=== PATIENT | female | born 1965 | race Caucasian/White ===

== ENCOUNTER → 2017-01-16 | Outpatient (CLI) | payer BC ==
[~2017-01-16] MED LIST: ACCUNEB 0.1.25 MG/1 INH; ALLEGRA ALLERG180 M1 PO; AMOXIL500 MG PO; ANAPROX DS550 MG PO; ANTI-FUNGAL1% TP; ASMANEX220 MCG INH; ASPIRIN FOR CHI81 MG PO; ASTEPRO137 MCG/Ac NS; ATIVAN1 MG PO; AUGMENTIN XR 101 TER PO; AZMACORT; BACTRIM 400 MG-1 TAB PO; BENTYL10 MG PO; BIAXIN500 MG PO; CALCIUM 500 +1 EAC3 PO; CARDIZEM LA240 MG PO; CARDIZEM30 MG; CIPROFLOXACIN500 MG PO; CLARITIN10 MG PO; COLACE50 MG PO; COMBIVENT1 ARO IH; DAYPRO600 M1 PO; DELTASONE10 MG PO; DIFLUCAN200 MG PO; DILTIAZEM XT PO; DOXYCYCLINE100 M3 PO; ENALAPRIL10 MG PO; ETODOLAC500 MG PO; FLUCONAZOLE100 MG PO; HYDROCODONE BIT1 T11 PO; LASIX20 MG PO; MACROBID100 M1 PO; MEDROL DOSEPAK4 MG PO; MIRALAX POWDER17 G1 PO; MIRALAX17 GM/DOSE PO; MOBIC7.5 MG; MOBIC7.5 MG PO; Motrin,Rufen800 MG PO; NIZORAL 2%15 GM PO; OXYBUTYNIN10 MG PO; OYSTER CAL 500500 MG PO; PAROXETINE HCL20 MG PO; PAXIL20 M1 PO; PAXIL20 MG PO; PREDNISONE10 MG PO; PROAIR HFA0.09 MG/AC IH; PYRIDIUM200 MG PO; ROBAXIN750 MG PO; SINGULAIR10 MG; Synthroid,Lev125 MCG PO; TESSALON PERLE200 MG PO; TOPROL XL25 MG PO; ULTRAM50 MG PO; VASOTEC10 MG PO; VICODIN 500 MG-1 TAB PO; VICODIN ES 7501 TAB PO; VITAMIN D32000 I1 PO; VITAMIN D50000 I2 PO; ZANTAC150 MG PO; ZOFRAN ODT4 MG SL; ZOFRAN4 MG PO; ZYRTEC10 MG PO; Zofran4 MG PO; [UNRECOGNIZED DRUG - OTHER] PO
[2017-01-16 14:42] LABS: FREE T4 0.89 ng/dl (0.76-1.46)
[2017-01-16 14:48] LABS: THYROID STIM HORMONE (HS) 41.6 uIU/ml (0.358-4.75)
== END | disposition home or self-care (01) ==
LOC: LAB 13:23
PROVIDERS: Internal Medicine Endocrinology, Diabetes & Metabolism
DX: E89.0 Postprocedural hypothyroidism (principal)

== ENCOUNTER → 2017-02-04 | Outpatient (CLI) | payer BC | END | disposition home or self-care (01) | LOC: LAB 16:14 | DX: E89.0 Postprocedural hypothyroidism (principal) ==

== ENCOUNTER 2017-02-11 21:04 | Emergency (ER) | payer BC ==
[~2017-02-11] VITALS: Ht 182.8 cm; Wt 167.8 kg
[2017-02-11] MEDS ORDERED: PROVENTIL0.09 MG/A1 INH (21:32)
[2017-02-11] MEDS ORDERED: PREDNISONE20 M1 PO (23:37)
[2017-02-11] MEDS ORDERED: CEFDINIR250 MG/5 M PO (23:37)
== END 2017-02-12 00:03 | disposition home or self-care (01) ==
LOC: ED 21:04
DX: R13.12 Dysphagia, oropharyngeal phase (principal); J02.9 Acute pharyngitis, unspecified; E03.9 Hypothyroidism, unspecified; F41.9 Anxiety disorder, unspecified; Z88.1 Allergy status to other antibiotic agents; Z88.2 Allergy status to sulfonamides; Z79.899 Other long term (current) drug therapy

== ENCOUNTER → 2017-03-24 | Outpatient (CLI) | payer BC ==
[~2017-03-24] MED LIST changes: +CEFDINIR250 MG/5 M PO; +PREDNISONE20 M1 PO; +PROVENTIL0.09 MG/A1 INH
[2017-03-24 08:41] LABS: BASO % 0.5 % (0.0-1.0); EOS # 0.2 10*3/uL (0.0-0.4); EOS % 1.7 % (1.0-4.0); HEMATOCRIT 40.9 % (37.0-47.0); HEMOGLOBIN 13.6 g/dl (12.0-16.0); LYMPH # 2.8 10*3/uL (1.3-4.4); LYMPH % 32.4 % (27.0-41.0); MEAN CELL VOLUME 88.3 fl (81.0-99.0); MEAN CORPUSCULAR HGB 29.4 pg (27.0-31.0); MEAN CORPUSCULAR HGB CONC 33.3 g/dl (33.0-37.0); MONO # 0.7 10*3/uL (0.1-1.0); MONO % 7.9 % (3.0-9.0); NEUT # 4.9 10*3/uL (2.3-7.9); PLATELET COUNT AUTOMATED 200 10*3/uL (130-400); RED BLOOD COUNT 4.63 10*6/uL (4.10-5.10); RED CELL DISTRI WIDTH 13.2 % (0-14.5); WHITE BLOOD COUNT 8.6 10*3/uL (4.8-10.8)
[2017-03-24 09:12] LABS: EST GLOM FILT AFRICAN AMERICAN > 60 ml/min; SGOT/AST 18 IU/L (3-35); SGPT/ALT 26 U/L (12-78)
== END | disposition home or self-care (01) ==
LOC: LAB 08:17
PROVIDERS: Internal Medicine Endocrinology, Diabetes & Metabolism
DX: E55.9 Vitamin D deficiency, unspecified (principal); E89.0 Postprocedural hypothyroidism; Z79.899 Other long term (current) drug therapy

== ENCOUNTER → 2017-05-22 | Outpatient (CLI) | payer BC ==
[2017-05-22 16:20] LABS: BASO % 0.5 % (0.0-1.0); EOS # 0.2 10*3/uL (0.0-0.4); EOS % 2.4 % (1.0-4.0); HEMATOCRIT 41.9 % (37.0-47.0); HEMOGLOBIN 13.7 g/dl (12.0-16.0); LYMPH # 2.9 10*3/uL (1.3-4.4); LYMPH % 32.7 % (27.0-41.0); MEAN CORPUSCULAR HGB 29.1 pg (27.0-31.0); MEAN CORPUSCULAR HGB CONC 32.7 g/dl (33.0-37.0); MEAN PLATELET VOLUME 10.6 fl (9.6-12.3); MONO # 0.6 10*3/uL (0.1-1.0); MONO % 7.1 % (3.0-9.0); PLATELET COUNT AUTOMATED 215 10*3/uL (130-400); RED BLOOD COUNT 4.71 10*6/uL (4.10-5.10); RED CELL DISTRI WIDTH 12.7 % (0-14.5); WHITE BLOOD COUNT 8.8 10*3/uL (4.8-10.8)
[2017-05-22 16:51] LABS: BUN 16 mg/dl (7-24); CARBON DIOXIDE 27 mmol/L (21-32); CHLORIDE 106 mmol/L (98-107); EST GLOM FILT AFRICAN AMERICAN > 60 ml/min; GLUCOSE 80 mg/dL (65-99); POTASSIUM 4.1 mmol/L (3.5-5.1); SODIUM 141 mmol/L (136-145)
== END | disposition home or self-care (01) ==
LOC: LAB 14:53
PROVIDERS: Internal Medicine Endocrinology, Diabetes & Metabolism
DX: E89.0 Postprocedural hypothyroidism (principal)

== ENCOUNTER 2017-06-13 17:11 | Emergency (ER) | payer BC ==
[~2017-06-13] VITALS: Ht 182.8 cm; Wt 168.3 kg
[2017-06-13] MEDS ORDERED: NAPROSYN500 MG PO (17:32)
== END 2017-06-13 18:17 | disposition home or self-care (01) ==
LOC: ED 17:11
DX: M79.644 Pain in right finger(s) (principal); R03.0 Elevated blood-pressure reading, without diagnosis of hypertension; Z88.1 Allergy status to other antibiotic agents; Z88.2 Allergy status to sulfonamides; Z91.018 Allergy to other foods; Z79.899 Other long term (current) drug therapy

== ENCOUNTER → 2017-09-08 | Outpatient (CLI) | payer BC ==
[~2017-09-08] MED LIST changes: +NAPROSYN500 MG PO
[2017-09-08 16:51] LABS: BUN 17 mg/dl (7-24); CREATININE 0.94 mg/dL (0.55-1.02); SGOT/AST 14 IU/L (3-35); SGPT/ALT 22 U/L (12-78)
== END | disposition home or self-care (01) ==
LOC: LAB 16:20
PROVIDERS: Specialist
DX: M79.7 Fibromyalgia (principal); E89.0 Postprocedural hypothyroidism; Z79.899 Other long term (current) drug therapy

== ENCOUNTER → 2017-11-07 | Outpatient (CLI) | payer BC ==
[~2017-11-07] MED LIST changes: +FLONASE ALLERG9.9 ML NAS; +Zofran4 MG SL
== END | disposition home or self-care (01) ==
LOC: RAD 09:18
DX: K59.00 Constipation, unspecified (principal); R09.81 Nasal congestion; R10.11 Right upper quadrant pain; R63.4 Abnormal weight loss; Z90.49 Acquired absence of other specified parts of digestive tract

== ENCOUNTER 2017-11-10 04:03 | Emergency (ER) | payer BC ==
[~2017-11-10] VITALS: Ht 182.8 cm; Wt 136.1 kg
[~2017-11-10 04:03] MED LIST changes: -FLONASE ALLERG9.9 ML NAS; -Zofran4 MG SL
[2017-11-10 04:37] LABS: BASO % 0.5 % (0.0-1.0); EOS # 0.2 10*3/uL (0.0-0.4); EOS % 2.6 % (1.0-4.0); HEMATOCRIT 40.7 % (37.0-47.0); HEMOGLOBIN 13.6 g/dl (12.0-16.0); LYMPH # 0.8 10*3/uL (1.3-4.4); LYMPH % 13.1 % (27.0-41.0); MEAN CELL VOLUME 88.3 fl (81.0-99.0); MEAN CORPUSCULAR HGB 29.5 pg (27.0-31.0); MEAN CORPUSCULAR HGB CONC 33.4 g/dl (33.0-37.0); MEAN PLATELET VOLUME 9.6 fl (9.6-12.3); MONO # 0.8 10*3/uL (0.1-1.0); MONO % 13.3 % (3.0-9.0); PLATELET COUNT AUTOMATED 168 10*3/uL (130-400); RED BLOOD COUNT 4.61 10*6/uL (4.10-5.10); RED CELL DISTRI WIDTH 13.2 % (0-14.5); WHITE BLOOD COUNT 5.7 10*3/uL (4.8-10.8)
[2017-11-10 04:52] LABS: ALBUMIN 3.7 gm/dl (3.1-4.5); ALKALINE PHOSPHATASE 118 U/L (45-117); BUN 17 mg/dl (7-24); CHLORIDE 105 mmol/L (98-107); CREATININE 1.12 mg/dL (0.55-1.02); LIPASE 119 U/L (73-393); POTASSIUM 3.9 mmol/L (3.5-5.1); SGOT/AST 15 IU/L (3-35); SGPT/ALT 26 U/L (12-78); SODIUM 142 mmol/L (136-145); TOTAL PROTEIN 7.8 gm/dL (6.4-8.2)
[2017-11-10 04:57] LABS: BILIRUBIN NEGATIVE (NEGATIVE); BLOOD NEGATIVE (NEGATIVE); CLARITY SL CLOUDY (CLEAR); COLOR YELLOW (YELLOW); GLUCOSE NEGATIVE (NEGATIVE); KETONE TRACE (NEGATIVE); LEUKO ESTERASE NEGATIVE (NEGATIVE); NITRITE NEGATIVE (NEGATIVE); PH 5.5 (5.0-9.0); SPECIFIC GRAVITY 1.025 (1.005-1.030); UROBILINOGEN 0.2 E.U./dl (0.2-1.0)
[2017-11-10 05:03] LABS: EPITHELIAL CELLS 45-50
[2017-11-10 05:04] LABS: BACTERIA 1+
[2017-11-10] MEDS ORDERED: FLONASE ALLERG9.9 ML NAS (06:10)
[2017-11-10] MEDS ORDERED: Zofran4 MG SL (06:10)
== END 2017-11-10 06:58 | disposition home or self-care (01) ==
LOC: ED 04:03
PROVIDERS: Student in an Organized Health Care Education/Training Program
DX: B34.9 Viral infection, unspecified (principal); R10.11 Right upper quadrant pain; M54.5 Low back pain; E03.9 Hypothyroidism, unspecified; Z90.710 Acquired absence of both cervix and uterus; Z90.49 Acquired absence of other specified parts of digestive tract; Z90.89 Acquired absence of other organs; Z79.899 Other long term (current) drug therapy; Z88.2 Allergy status to sulfonamides; Z88.1 Allergy status to other antibiotic agents; Z91.018 Allergy to other foods

== ENCOUNTER 2018-02-20 23:01 | Emergency (ER) | payer BC ==
[~2018-02-20] VITALS: Ht 182.8 cm; Wt 157.9 kg
[~2018-02-20 23:01] MED LIST changes: +FLONASE ALLERG9.9 ML NAS; +Zofran4 MG SL
[2018-02-20] MEDS ORDERED: FLOVENT HFA12 GM INH (23:13)
[2018-02-20] MEDS ORDERED: ZYRTEC10 MG PO (23:14)
[2018-02-20] MEDS ORDERED: CEPHALEXIN500 M1 PO (23:30)
== END 2018-02-20 23:42 | disposition home or self-care (01) ==
LOC: ED 23:01
DX: S30.861A Insect bite (nonvenomous) of abdominal wall, initial encounter (principal); F41.9 Anxiety disorder, unspecified; Z88.2 Allergy status to sulfonamides; Z88.1 Allergy status to other antibiotic agents; Z79.899 Other long term (current) drug therapy; W57.XXXA Bitten or stung by nonvenomous insect and other nonvenomous arthropods, initial encounter; Y93.89 Activity, other specified; Y92.89 Other specified places as the place of occurrence of the external cause; Y99.8 Other external cause status

== ENCOUNTER → 2018-07-23 | Outpatient (CLI) | payer BC ==
[~2018-07-23] MED LIST changes: +CEPHALEXIN500 M1 PO; +FLOVENT HFA12 GM INH
== END | disposition home or self-care (01) ==
LOC: RESCLI 01:03
DX: Z12.4 Encounter for screening for malignant neoplasm of cervix (principal); Z12.31 Encounter for screening mammogram for malignant neoplasm of breast; Z12.11 Encounter for screening for malignant neoplasm of colon; R06.02 Shortness of breath; F41.9 Anxiety disorder, unspecified; E89.0 Postprocedural hypothyroidism; E66.01 Morbid (severe) obesity due to excess calories; D51.0 Vitamin B12 deficiency anemia due to intrinsic factor deficiency; E55.9 Vitamin D deficiency, unspecified; I10 Essential (primary) hypertension; Z76.89 Persons encountering health services in other specified circumstances; Z86.79 Personal history of other diseases of the circulatory system; Z91.09 Other allergy status, other than to drugs and biological substances; Z79.899 Other long term (current) drug therapy

== ENCOUNTER → 2018-08-12 | Outpatient (CLI) | payer BC | END | disposition home or self-care (01) | LOC: MAMMO 09:48 | DX: Z12.31 Encounter for screening mammogram for malignant neoplasm of breast (principal) ==

== ENCOUNTER → 2018-09-10 | Outpatient (CLI) | payer BC | END | disposition home or self-care (01) | LOC: RESCLI 03:28 | DX: Z00.00 Encounter for general adult medical examination without abnormal findings (principal); F13.20 Sedative, hypnotic or anxiolytic dependence, uncomplicated; I10 Essential (primary) hypertension; R06.02 Shortness of breath; E55.9 Vitamin D deficiency, unspecified; E03.9 Hypothyroidism, unspecified; F32.9 Major depressive disorder, single episode, unspecified; I49.9 Cardiac arrhythmia, unspecified; M19.90 Unspecified osteoarthritis, unspecified site; N39.498 Other specified urinary incontinence; J30.2 Other seasonal allergic rhinitis; Z79.899 Other long term (current) drug therapy; Z88.2 Allergy status to sulfonamides; Z88.8 Allergy status to other drugs, medicaments and biological substances ==

== ENCOUNTER → 2018-10-26 | Outpatient (CLI) | payer BC ==
[~2018-10-26] MED LIST changes: +AMINOPHYLLIN200 MG PO; +BUSPAR15 MG PO; +MUCINEX ER600 MG PO; +NYSTATIN CREAM15 GM T; +VENTOLIN 02.5 MG/3 M INH; +ZITHROMAX250 MG PO
== END | disposition home or self-care (01) ==
LOC: RESCLI 09:00
DX: I10 Essential (primary) hypertension (principal); J00 Acute nasopharyngitis [common cold]; H66.001 Acute suppurative otitis media without spontaneous rupture of ear drum, right ear; B37.3 Candidiasis of vulva and vagina; E78.5 Hyperlipidemia, unspecified; J45.909 Unspecified asthma, uncomplicated; Z90.49 Acquired absence of other specified parts of digestive tract; Z88.2 Allergy status to sulfonamides; Z91.018 Allergy to other foods; Z79.899 Other long term (current) drug therapy; Z88.8 Allergy status to other drugs, medicaments and biological substances

== ENCOUNTER → 2018-10-29 | Day surgery (SDC) | payer BC ==
[~2018-10-29] VITALS: Ht 182.8 cm; Wt 174.6 kg
--- NOTE | ~2018-10-29 | PROC NOTE ---
[place], [place] PROCEDURE NOTE NAME: KIRILL BECERRA [facility] #: [id number] UNIT #: [id number] ROOM: DOCTOR: JULISA HUTSON MD BIRTHDATE: [birth year] DOS: PROCEDURES: 1. Esophagogastroduodenoscopy and biopsy. 2. Colonoscopy and biopsy. INDICATIONS: Nausea, abdominal pain, and chronic diarrhea. An informed consent was obtained from the patient after indication of procedures, the alternatives and potential complications were explained to her. Procedure medication, sedation was administered by Anesthesiology Department. Scope used was Olympus pediatric colonoscope variable stiffness GIF-180, depth of insertion with upper endoscopy was to descending duodenum. With the colonoscopy was to the cecum, which was identified by the usual landmarks, the appendiceal orifice, ileocecal valve and triangular fold, in addition to transillumination in the right lower quadrant. FINDINGS: After adequate sedation, the patient was placed in left lateral decubitus position. Upper endoscopy was performed first. Scope was introduced under direct visualization through the upper esophageal sphincter into the esophagus. Esophageal mucosa appeared normal with no ulcerations or strictures. Lower esophageal sphincter was identified at 40 cm from incisors. Normal appearing Z line. The stomach was then intubated. Gastric mucosa inspected. Moderate gastritis was seen with no discrete ulcers or active bleeding. A YOVANY test was performed from gastric antrum and body. Retroflexed views in the fundus were unremarkable. The pylorus was intubated easily. The duodenal bulb and descending duodenum were within normal range. Scope was then withdrawn after the stomach was decompressed. We then proceeded with the colonoscopy. Rectal examination showed a diminished sphincter tone and no external hemorrhoids. The scope was introduced into the rectum then advanced to the cecum with no difficulty. The prep was good. The colon mucosa appeared normal with no evidence of polyps, diverticular ulcerations. Random biopsies were obtained to rule out microscopic colitis. Retroflex views in the rectum showed grade 1 internal hemorrhoids. Scope was then withdrawn after the rectum was decompressed. The patient tolerated the procedures well. IMPRESSION: 1. Moderate gastritis, CLOtest performed. 2. Normal upper GI tract otherwise. 3. Normal colon mucosa, random biopsies obtained. 4. Small internal hemorrhoids. PLAN: We will review the histopathology and YOVANY test results and treat the patient accordingly. Office followup will be scheduled in 1-2 weeks. [place], [place] PROCEDURE NOTE NAME: KIRILL BECERRA UNIT #: [id number] ROOM: DOCTOR: JULISA HUTSON MD BIRTHDATE: [birth year] JULISA HUTSON MD CM:PROCNOTE:PROCEDURE NOTE [id number] JULISA HUTSON MD
[2018-10-29 07:20] VITALS: BP 129/85
[2018-10-29 09:13] VITALS: BP 121/62
[2018-10-29 09:28] VITALS: BP 130/64
[2018-10-29 09:43] VITALS: BP 119/74
== END | disposition home or self-care (01) ==
LOC: SDC 10-25 09:30
DX: K64.0 First degree hemorrhoids (principal); K29.70 Gastritis, unspecified, without bleeding; I10 Essential (primary) hypertension; J45.909 Unspecified asthma, uncomplicated; F41.9 Anxiety disorder, unspecified; F32.9 Major depressive disorder, single episode, unspecified; E66.9 Obesity, unspecified; Z68.43 Body mass index [BMI] 50.0-59.9, adult; Z90.710 Acquired absence of both cervix and uterus; Z98.890 Other specified postprocedural states; Z88.8 Allergy status to other drugs, medicaments and biological substances; Z88.2 Allergy status to sulfonamides; Z91.018 Allergy to other foods; Z88.1 Allergy status to other antibiotic agents; Z86.718 Personal history of other venous thrombosis and embolism; Z82.49 Family history of ischemic heart disease and other diseases of the circulatory system; Z80.1 Family history of malignant neoplasm of trachea, bronchus and lung

== ENCOUNTER 2018-10-30 13:26 | Emergency (ER) | payer BC ==
[~2018-10-30] VITALS: Ht 182.8 cm; Wt 166.9 kg
[~2018-10-30 13:26] MED LIST changes: -AMINOPHYLLIN200 MG PO; -BUSPAR15 MG PO; -MUCINEX ER600 MG PO; -NYSTATIN CREAM15 GM T; -VENTOLIN 02.5 MG/3 M INH; -ZITHROMAX250 MG PO
[2018-10-30 14:00] LABS: BASO % 0.5 % (0.0-1.0); EOS # 0.2 10*3/uL (0.0-0.4); EOS % 2.7 % (1.0-4.0); HEMATOCRIT 44.4 % (37.0-47.0); HEMOGLOBIN 14.6 g/dl (12.0-16.0); LYMPH % 25.5 % (27.0-41.0); MEAN CELL VOLUME 89.7 fl (81.0-99.0); MEAN CORPUSCULAR HGB 29.5 pg (27.0-31.0); MEAN CORPUSCULAR HGB CONC 32.9 g/dl (33.0-37.0); MEAN PLATELET VOLUME 9.5 fl (9.6-12.3); MONO # 0.6 10*3/uL (0.1-1.0); MONO % 7.1 % (3.0-9.0); NEUT # 5.1 10*3/uL (2.3-7.9); NEUT % 63.9 % (47.0-73.0); PLATELET COUNT AUTOMATED 207 10*3/uL (130-400); RED BLOOD COUNT 4.95 10*6/uL (4.10-5.10); RED CELL DISTRI WIDTH 12.8 % (0-14.5); WHITE BLOOD COUNT 7.9 10*3/uL (4.8-10.8)
[2018-10-30 14:17] LABS: ALBUMIN 3.3 gm/dl (3.1-4.5); ALKALINE PHOSPHATASE 104 U/L (45-117); BUN 14 mg/dl (7-24); CHLORIDE 103 mmol/L (98-107); CREATININE 1.09 mg/dL (0.55-1.02); POTASSIUM 3.9 mmol/L (3.5-5.1); SGOT/AST 10 IU/L (3-35); SGPT/ALT 20 U/L (12-78); SODIUM 139 mmol/L (136-145); TOTAL PROTEIN 7.3 gm/dL (6.4-8.2)
[2018-10-30] MEDS ORDERED: MEDROL DOSEPAK4 MG PO (16:22)
== END 2018-10-30 16:45 | disposition home or self-care (01) ==
LOC: ED 13:26
PROVIDERS: Emergency Medicine
DX: B27.90 Infectious mononucleosis, unspecified without complication (principal); E03.9 Hypothyroidism, unspecified; Z90.710 Acquired absence of both cervix and uterus; Z91.018 Allergy to other foods; Z88.2 Allergy status to sulfonamides; Z91.041 Radiographic dye allergy status; Z88.1 Allergy status to other antibiotic agents; Z79.899 Other long term (current) drug therapy

== ENCOUNTER → 2018-11-09 | Outpatient (CLI) | payer BC ==
[~2018-11-09] MED LIST changes: +AMINOPHYLLIN200 MG PO; +BUSPAR15 MG PO; +MUCINEX ER600 MG PO; +NYSTATIN CREAM15 GM T; +VENTOLIN 02.5 MG/3 M INH; +ZITHROMAX250 MG PO
== END | disposition home or self-care (01) ==
LOC: RESCLI 01:54
DX: I10 Essential (primary) hypertension (principal); J00 Acute nasopharyngitis [common cold]; E55.9 Vitamin D deficiency, unspecified; B37.3 Candidiasis of vulva and vagina; E03.9 Hypothyroidism, unspecified; F32.9 Major depressive disorder, single episode, unspecified; I49.9 Cardiac arrhythmia, unspecified; B27.90 Infectious mononucleosis, unspecified without complication; R05 Cough; E66.01 Morbid (severe) obesity due to excess calories; R00.0 Tachycardia, unspecified; J45.909 Unspecified asthma, uncomplicated; Z90.49 Acquired absence of other specified parts of digestive tract; Z79.899 Other long term (current) drug therapy; Z88.8 Allergy status to other drugs, medicaments and biological substances; Z91.018 Allergy to other foods; Z91.012 Allergy to eggs; Z88.2 Allergy status to sulfonamides

== ENCOUNTER 2018-11-11 18:59 | Inpatient (IN) | payer BC ==
--- NOTE | ~2018-11-11 | EKG ---
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
[~2018-11-11 18:59] MED LIST changes: -AMINOPHYLLIN200 MG PO; -BUSPAR15 MG PO; -MUCINEX ER600 MG PO; -NYSTATIN CREAM15 GM T; -VENTOLIN 02.5 MG/3 M INH; -ZITHROMAX250 MG PO
[2018-11-11 19:01] VITALS: BP 152/93
[2018-11-11 19:35] LABS: BASO % 0.5 % (0.0-1.0); EOS # 0.3 10*3/uL (0.0-0.4); HEMATOCRIT 45.1 % (37.0-47.0); HEMOGLOBIN 14.8 g/dl (12.0-16.0); LYMPH # 2.1 10*3/uL (1.3-4.4); LYMPH % 26.5 % (27.0-41.0); MEAN CELL VOLUME 89.8 fl (81.0-99.0); MEAN CORPUSCULAR HGB 29.5 pg (27.0-31.0); MEAN CORPUSCULAR HGB CONC 32.8 g/dl (33.0-37.0); MEAN PLATELET VOLUME 9.5 fl (9.6-12.3); MONO # 0.8 10*3/uL (0.1-1.0); MONO % 10.4 % (3.0-9.0); NEUT # 4.7 10*3/uL (2.3-7.9); PLATELET COUNT AUTOMATED 186 10*3/uL (130-400); RED BLOOD COUNT 5.02 10*6/uL (4.10-5.10); RED CELL DISTRI WIDTH 13.2 % (0-14.5)
[2018-11-11 19:49] LABS: ALBUMIN 3.3 gm/dl (3.1-4.5); ALKALINE PHOSPHATASE 103 U/L (45-117); BUN 10 mg/dl (7-24); CHLORIDE 103 mmol/L (98-107); CREATININE 1.08 mg/dL (0.55-1.02); POTASSIUM 4.2 mmol/L (3.5-5.1); SGOT/AST 21 IU/L (3-35); SGPT/ALT 22 U/L (12-78); SODIUM 139 mmol/L (136-145); TOTAL PROTEIN 7.7 gm/dL (6.4-8.2)
[2018-11-11 21:10] LABS: INTERNATIONAL NORM RATIO 0.9 (2.0-3.5)
[2018-11-11] MEDS ORDERED: BUSPAR15 MG PO (21:24)
[2018-11-11 21:37] LABS: TROPONIN I < 0.015 ng/ml (<0.045)
[2018-11-11 22:25] VITALS: BP 116/78
[2018-11-12] VITALS: BP 129/65
[2018-11-12 06:52] LABS: ALBUMIN 2.8 gm/dl (3.1-4.5); ALKALINE PHOSPHATASE 81 U/L (45-117); BUN 9 mg/dl (7-24); CHLORIDE 105 mmol/L (98-107); CHOLESTEROL 129 mg/dL (<200); CREATININE 1.01 mg/dL (0.55-1.02); HDL CHOLESTEROL 33 mg/dl (40-60); LDL CHOLESTEROL 77 mg/dL (9-159); PHOSPHOROUS 2.9 mg/dL (2.5-4.9); SGPT/ALT 18 U/L (12-78); SODIUM 139 mmol/L (136-145); TOTAL PROTEIN 6.5 gm/dL (6.4-8.2); TRIGLYCERIDES 93 mg/dl (<150); VLDL CHOLESTEROL 19 mg/dL (6-40)
[2018-11-12 07:00] LABS: SGOT/AST 18 IU/L (3-35); THYROID STIM HORMONE (HS) 0.976 uIU/ml (0.358-4.75)
[2018-11-12 07:57] LABS: BASO % 0.4 % (0.0-1.0); EOS # 0.2 10*3/uL (0.0-0.4); EOS % 3.9 % (1.0-4.0); HEMATOCRIT 39.3 % (37.0-47.0); LYMPH # 1.6 10*3/uL (1.3-4.4); MEAN CELL VOLUME 91.2 fl (81.0-99.0); MEAN CORPUSCULAR HGB 29.2 pg (27.0-31.0); MEAN CORPUSCULAR HGB CONC 32.1 g/dl (33.0-37.0); MEAN PLATELET VOLUME 10.5 fl (9.6-12.3); MONO # 0.6 10*3/uL (0.1-1.0); MONO % 11.3 % (3.0-9.0); NEUT # 2.9 10*3/uL (2.3-7.9); NEUT % 54.7 % (47.0-73.0); PLATELET COUNT AUTOMATED 147 10*3/uL (130-400); RED BLOOD COUNT 4.31 10*6/uL (4.10-5.10); RED CELL DISTRI WIDTH 13.2 % (0-14.5); WHITE BLOOD COUNT 5.4 10*3/uL (4.8-10.8)
[2018-11-12 08:00] VITALS: BP 110/78
[2018-11-12 08:13] LABS: HEMOGLOBIN 12.6 g/dl (12.0-16.0)
[2018-11-12 12:00] VITALS: BP 137/66
[2018-11-12 16:00] VITALS: BP 127/62
[2018-11-12 20:00] VITALS: BP 126/59
[2018-11-13] VITALS: BP 133/70
[2018-11-13 07:00] LABS: BASO % 0.2 % (0.0-1.0); HEMATOCRIT 39.3 % (37.0-47.0); HEMOGLOBIN 12.6 g/dl (12.0-16.0); LYMPH % 16.7 % (27.0-41.0); MEAN CELL VOLUME 90.3 fl (81.0-99.0); MEAN CORPUSCULAR HGB CONC 32.1 g/dl (33.0-37.0); MEAN PLATELET VOLUME 11.3 fl (9.6-12.3); MONO # 0.2 10*3/uL (0.1-1.0); NEUT # 4.6 10*3/uL (2.3-7.9); NEUT % 78.4 % (47.0-73.0); PLATELET COUNT AUTOMATED 188 10*3/uL (130-400); RED BLOOD COUNT 4.35 10*6/uL (4.10-5.10); RED CELL DISTRI WIDTH 12.8 % (0-14.5); WHITE BLOOD COUNT 5.8 10*3/uL (4.8-10.8)
[2018-11-13 07:03] LABS: BUN 12 mg/dl (7-24); CHLORIDE 110 mmol/L (98-107); POTASSIUM 4.9 mmol/L (3.5-5.1); SODIUM 141 mmol/L (136-145)
[2018-11-13 08:00] VITALS: BP 138/80
[2018-11-13 12:00] VITALS: BP 113/66
[2018-11-13 16:00] VITALS: BP 110/65
[2018-11-13 20:00] VITALS: BP 137/68
[2018-11-14] VITALS: BP 128/63
[2018-11-14 06:21] LABS: BASO % 0.1 % (0.0-1.0); HEMATOCRIT 38.8 % (37.0-47.0); HEMOGLOBIN 12.3 g/dl (12.0-16.0); LYMPH # 1.2 10*3/uL (1.3-4.4); MEAN CELL VOLUME 90.2 fl (81.0-99.0); MEAN CORPUSCULAR HGB 28.6 pg (27.0-31.0); MEAN CORPUSCULAR HGB CONC 31.7 g/dl (33.0-37.0); MONO # 0.2 10*3/uL (0.1-1.0); MONO % 2.3 % (3.0-9.0); NEUT # 8.5 10*3/uL (2.3-7.9); PLATELET COUNT AUTOMATED 189 10*3/uL (130-400)
[2018-11-14 06:48] LABS: ALBUMIN 3.1 gm/dl (3.1-4.5); ALKALINE PHOSPHATASE 73 U/L (45-117); BUN 16 mg/dl (7-24); CHLORIDE 110 mmol/L (98-107); CREATININE 0.96 mg/dL (0.55-1.02); PHOSPHOROUS 3.6 mg/dL (2.5-4.9); POTASSIUM 4.5 mmol/L (3.5-5.1); SGOT/AST 15 IU/L (3-35); SGPT/ALT 18 U/L (12-78); SODIUM 143 mmol/L (136-145)
[2018-11-14 08:00] VITALS: BP 140/80
[2018-11-14] MEDS ORDERED: ZITHROMAX250 MG PO (11:31)
[2018-11-14] MEDS ORDERED: VENTOLIN 02.5 MG/3 M INH (11:31)
[2018-11-14] MEDS ORDERED: PREDNISONE10 MG PO (11:31)
[2018-11-14] MEDS ORDERED: MUCINEX ER600 MG PO (11:31)
[2018-11-14] MEDS ORDERED: AMINOPHYLLIN200 MG PO (11:31)
== END 2018-11-14 12:00 | disposition home or self-care (01) | DRG 193 ==
LOC: ED 18:59 → 4E 21:07 → EDHOLD 21:07 → 4E 22:08
PROVIDERS: Internal Medicine; Physician Assistant; Student in an Organized Health Care Education/Training Program; ADMIT Internal Medicine
DX: J18.1 Lobar pneumonia, unspecified organism (principal); J96.01 Acute respiratory failure with hypoxia; E44.0 Moderate protein-calorie malnutrition; I47.1 Supraventricular tachycardia; Z68.43 Body mass index [BMI] 50.0-59.9, adult; B27.90 Infectious mononucleosis, unspecified without complication; E03.9 Hypothyroidism, unspecified; F41.1 Generalized anxiety disorder; J45.909 Unspecified asthma, uncomplicated; E66.01 Morbid (severe) obesity due to excess calories; N18.3 Chronic kidney disease, stage 3 (moderate); E78.5 Hyperlipidemia, unspecified; K21.9 Gastro-esophageal reflux disease without esophagitis; F41.9 Anxiety disorder, unspecified; F32.9 Major depressive disorder, single episode, unspecified; M79.7 Fibromyalgia; Z90.49 Acquired absence of other specified parts of digestive tract; Z90.710 Acquired absence of both cervix and uterus; Z85.118 Personal history of other malignant neoplasm of bronchus and lung; Z85.29 Personal history of malignant neoplasm of other respiratory and intrathoracic organs; Z88.2 Allergy status to sulfonamides; Z88.8 Allergy status to other drugs, medicaments and biological substances; E11.65 Type 2 diabetes mellitus with hyperglycemia; I12.9 Hypertensive chronic kidney disease with stage 1 through stage 4 chronic kidney disease, or unspecified chronic kidney disease

== ENCOUNTER 2018-11-30 09:55 | Emergency (ER) | payer BC ==
[~2018-11-30] VITALS: Ht 182.8 cm; Wt 162.4 kg
[~2018-11-30 09:55] MED LIST changes: +AMINOPHYLLIN200 MG PO; +BUSPAR15 MG PO; +MUCINEX ER600 MG PO; +VENTOLIN 02.5 MG/3 M INH; +ZITHROMAX250 MG PO
[2018-11-30 10:38] LABS: BASO % 0.3 % (0.0-1.0); EOS # 0.2 10*3/uL (0.0-0.4); EOS % 2.2 % (1.0-4.0); HEMATOCRIT 42.8 % (37.0-47.0); MEAN CELL VOLUME 90.1 fl (81.0-99.0); MEAN CORPUSCULAR HGB 29.5 pg (27.0-31.0); MEAN CORPUSCULAR HGB CONC 32.7 g/dl (33.0-37.0); MEAN PLATELET VOLUME 9.5 fl (9.6-12.3); MONO # 0.7 10*3/uL (0.1-1.0); NEUT # 6.9 10*3/uL (2.3-7.9); PLATELET COUNT AUTOMATED 201 10*3/uL (130-400); RED BLOOD COUNT 4.75 10*6/uL (4.10-5.10); RED CELL DISTRI WIDTH 13.2 % (0-14.5); WHITE BLOOD COUNT 9.8 10*3/uL (4.8-10.8)
[2018-11-30 10:43] LABS: BILIRUBIN NEGATIVE (NEGATIVE); BLOOD NEGATIVE (NEGATIVE); CLARITY CLEAR (CLEAR); COLOR YELLOW (YELLOW); GLUCOSE NEGATIVE (NEGATIVE); KETONE NEGATIVE (NEGATIVE); LEUKO ESTERASE NEGATIVE (NEGATIVE); NITRITE NEGATIVE (NEGATIVE); SPECIFIC GRAVITY 1.025 (1.005-1.030); UROBILINOGEN 0.2 E.U./dl (0.2-1.0)
[2018-11-30 10:51] LABS: BACTERIA 1+
[2018-11-30 10:55] LABS: ALBUMIN 3.2 gm/dl (3.1-4.5); ALKALINE PHOSPHATASE 94 U/L (45-117); BUN 18 mg/dl (7-24); CHLORIDE 107 mmol/L (98-107); CREATININE 0.99 mg/dL (0.55-1.02); POTASSIUM 4.2 mmol/L (3.5-5.1); SGOT/AST 9 IU/L (3-35); SGPT/ALT 20 U/L (12-78); SODIUM 139 mmol/L (136-145); TOTAL PROTEIN 7.2 gm/dL (6.4-8.2)
[2018-11-30] MEDS ORDERED: NYSTATIN CREAM15 GM T (13:19)
== END 2018-11-30 13:32 | disposition home or self-care (01) ==
LOC: ED 09:55
PROVIDERS: Nurse Practitioner Family
DX: B37.2 Candidiasis of skin and nail (principal); R10.31 Right lower quadrant pain; Z91.018 Allergy to other foods; Z88.2 Allergy status to sulfonamides; Z88.1 Allergy status to other antibiotic agents; Z91.041 Radiographic dye allergy status; Z79.899 Other long term (current) drug therapy; Z79.2 Long term (current) use of antibiotics; Z90.710 Acquired absence of both cervix and uterus; Z90.49 Acquired absence of other specified parts of digestive tract; Z87.442 Personal history of urinary calculi

== ENCOUNTER → 2018-12-02 | Outpatient (CLI) | payer BC ==
[~2018-12-02] MED LIST changes: +NYSTATIN CREAM15 GM T
[2018-12-02 15:43] LABS: BILIRUBIN NEGATIVE (NEGATIVE); BLOOD NEGATIVE (NEGATIVE); CLARITY SL CLOUDY (CLEAR); COLOR YELLOW (YELLOW); GLUCOSE NEGATIVE (NEGATIVE); KETONE TRACE (NEGATIVE); LEUKO ESTERASE TRACE (NEGATIVE); NITRITE NEGATIVE (NEGATIVE); SPECIFIC GRAVITY >= 1.030 (1.005-1.030); UROBILINOGEN 0.2 E.U./dl (0.2-1.0)
[2018-12-02 16:11] LABS: CALCIUM OXALATE CRYSTALS 3+
[2018-12-02 16:12] LABS: BACTERIA 1+; EPITHELIAL CELLS 21-30
== END | disposition home or self-care (01) ==
LOC: RESCLI 14:13
PROVIDERS: Internal Medicine
DX: E66.01 Morbid (severe) obesity due to excess calories (principal); R30.0 Dysuria; J34.89 Other specified disorders of nose and nasal sinuses; I47.1 Supraventricular tachycardia; F32.9 Major depressive disorder, single episode, unspecified; E55.9 Vitamin D deficiency, unspecified; E89.0 Postprocedural hypothyroidism; I49.9 Cardiac arrhythmia, unspecified; I10 Essential (primary) hypertension; E78.5 Hyperlipidemia, unspecified; Z79.899 Other long term (current) drug therapy; Z88.2 Allergy status to sulfonamides; Z88.8 Allergy status to other drugs, medicaments and biological substances; Z91.018 Allergy to other foods

== ENCOUNTER → 2018-12-10 | Outpatient (CLI) | payer BC | END | disposition home or self-care (01) | LOC: RAD 15:33 | DX: J32.9 Chronic sinusitis, unspecified (principal); J30.9 Allergic rhinitis, unspecified ==

== ENCOUNTER → 2019-01-05 | Outpatient (CLI) | payer BC | END | disposition home or self-care (01) | LOC: RESCLI 01:13 | DX: E55.9 Vitamin D deficiency, unspecified (principal); F32.9 Major depressive disorder, single episode, unspecified; E03.9 Hypothyroidism, unspecified; J30.2 Other seasonal allergic rhinitis; I10 Essential (primary) hypertension; E66.01 Morbid (severe) obesity due to excess calories; F41.9 Anxiety disorder, unspecified; M79.7 Fibromyalgia; I49.9 Cardiac arrhythmia, unspecified; N39.498 Other specified urinary incontinence; E78.5 Hyperlipidemia, unspecified ==

== ENCOUNTER → 2019-04-18 | Outpatient (CLI) | payer BC ==
[2019-04-18 10:18] LABS: BASO # 0.1 10*3/uL (0.0-0.1); BASO % 0.5 % (0.0-1.0); EOS # 0.2 10*3/uL (0.0-0.4); EOS % 2.4 % (1.0-4.0); HEMATOCRIT 44.7 % (37.0-47.0); HEMOGLOBIN 14.5 g/dl (12.0-16.0); LYMPH # 2.2 10*3/uL (1.3-4.4); MEAN CELL VOLUME 91.4 fl (81.0-99.0); MEAN CORPUSCULAR HGB 29.7 pg (27.0-31.0); MEAN CORPUSCULAR HGB CONC 32.4 g/dl (33.0-37.0); MEAN PLATELET VOLUME 9.6 fl (9.6-12.3); MONO # 0.7 10*3/uL (0.1-1.0); MONO % 7.5 % (3.0-9.0); NEUT # 6.3 10*3/uL (2.3-7.9); PLATELET COUNT AUTOMATED 217 10*3/uL (130-400); RED BLOOD COUNT 4.89 10*6/uL (4.10-5.10); RED CELL DISTRI WIDTH 13.1 % (0-14.5); WHITE BLOOD COUNT 9.6 10*3/uL (4.8-10.8)
[2019-04-18 10:49] LABS: ALBUMIN 3.6 gm/dl (3.1-4.5); ALKALINE PHOSPHATASE 108 U/L (45-117); BUN 19 mg/dl (7-24); CHLORIDE 106 mmol/L (98-107); CREATININE 0.98 mg/dL (0.55-1.02); POTASSIUM 4.3 mmol/L (3.5-5.1); SGOT/AST 12 IU/L (3-35); SGPT/ALT 19 U/L (12-78); SODIUM 141 mmol/L (136-145); TOTAL PROTEIN 7.5 gm/dL (6.4-8.2)
[2019-04-18 10:50] LABS: CHOLESTEROL 204 mg/dL (<200); HDL CHOLESTEROL 60 mg/dl (40-60); LDL CHOLESTEROL 117 mg/dL (9-159); TRIGLYCERIDES 133 mg/dl (<150); VLDL CHOLESTEROL 27 mg/dL (6-40)
== END | disposition home or self-care (01) ==
LOC: LAB 09:54 → US 10:30
PROVIDERS: Internal Medicine; Internal Medicine Endocrinology, Diabetes & Metabolism
DX: E89.0 Postprocedural hypothyroidism (principal); E66.01 Morbid (severe) obesity due to excess calories; M79.7 Fibromyalgia; Z68.43 Body mass index [BMI] 50.0-59.9, adult

== ENCOUNTER → 2019-05-03 | Outpatient (CLI) | payer BC | END | disposition home or self-care (01) | LOC: RESCLI 01:45 | DX: E66.01 Morbid (severe) obesity due to excess calories (principal); M79.7 Fibromyalgia; D51.0 Vitamin B12 deficiency anemia due to intrinsic factor deficiency; F41.9 Anxiety disorder, unspecified; I10 Essential (primary) hypertension; M19.90 Unspecified osteoarthritis, unspecified site; F32.9 Major depressive disorder, single episode, unspecified; E89.0 Postprocedural hypothyroidism; E55.9 Vitamin D deficiency, unspecified; J30.2 Other seasonal allergic rhinitis; N39.41 Urge incontinence; I49.9 Cardiac arrhythmia, unspecified; R73.03 Prediabetes; Z78.0 Asymptomatic menopausal state; Z68.43 Body mass index [BMI] 50.0-59.9, adult; Z90.49 Acquired absence of other specified parts of digestive tract ==

== ENCOUNTER → 2019-05-31 | Outpatient (CLI) | payer BC ==
[2019-05-31 14:02] LABS: FREE T4 1.26 ng/dl (0.76-1.46); THYROID STIM HORMONE (HS) 1.23 uIU/ml (0.358-4.75)
== END | disposition home or self-care (01) ==
LOC: LAB 13:15
PROVIDERS: Internal Medicine Endocrinology, Diabetes & Metabolism
DX: E89.0 Postprocedural hypothyroidism (principal)

== ENCOUNTER → 2019-07-14 | Outpatient (CLI) | payer BC | END | disposition home or self-care (01) | LOC: RESCLI 00:29 | DX: F41.9 Anxiety disorder, unspecified (principal); I10 Essential (primary) hypertension; F32.9 Major depressive disorder, single episode, unspecified; E55.9 Vitamin D deficiency, unspecified; J30.2 Other seasonal allergic rhinitis; N39.41 Urge incontinence; I49.9 Cardiac arrhythmia, unspecified; R73.03 Prediabetes; E89.0 Postprocedural hypothyroidism; E78.5 Hyperlipidemia, unspecified; E66.01 Morbid (severe) obesity due to excess calories; Z79.899 Other long term (current) drug therapy; Z78.0 Asymptomatic menopausal state ==

== ENCOUNTER → 2019-07-21 | Outpatient (CLI) | payer BC ==
[2019-07-21 12:39] LABS: ALBUMIN 3.5 gm/dl (3.1-4.5); BUN 15 mg/dl (7-24); CHLORIDE 108 mmol/L (98-107); CHOLESTEROL 190 mg/dL (<200); CREATININE 0.97 mg/dL (0.55-1.02); POTASSIUM 3.9 mmol/L (3.5-5.1); SGOT/AST 10 IU/L (3-35); SGPT/ALT 19 U/L (12-78); SODIUM 140 mmol/L (136-145); TOTAL PROTEIN 7.4 gm/dL (6.4-8.2); TRIGLYCERIDES 135 mg/dl (<150); VLDL CHOLESTEROL 27 mg/dL (6-40)
[2019-07-21 12:46] LABS: ALKALINE PHOSPHATASE 93 U/L (45-117); FREE T4 1.32 ng/dl (0.76-1.46); HDL CHOLESTEROL 53 mg/dl (40-60); LDL CHOLESTEROL 110 mg/dL (9-159); THYROID STIM HORMONE (HS) 0.409 uIU/ml (0.358-4.75)
== END | disposition home or self-care (01) ==
LOC: LAB 10:57
PROVIDERS: Internal Medicine Endocrinology, Diabetes & Metabolism
DX: E89.0 Postprocedural hypothyroidism (principal); E55.9 Vitamin D deficiency, unspecified; R73.02 Impaired glucose tolerance (oral)

== ENCOUNTER 2019-08-03 16:02 | Emergency (ER) | payer BC ==
[~2019-08-03] VITALS: Ht 182.8 cm; Wt 162.4 kg
--- NOTE | ~2019-08-03 | EKG ---
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
[2019-08-03 16:46] LABS: BASO % 0.4 % (0.0-1.0); EOS # 0.2 10*3/uL (0.0-0.4); EOS % 1.7 % (1.0-4.0); HEMATOCRIT 41.8 % (37.0-47.0); HEMOGLOBIN 13.7 g/dl (12.0-16.0); LYMPH # 2.2 10*3/uL (1.3-4.4); LYMPH % 22.9 % (27.0-41.0); MEAN CELL VOLUME 89.1 fl (81.0-99.0); MEAN CORPUSCULAR HGB 29.2 pg (27.0-31.0); MEAN CORPUSCULAR HGB CONC 32.8 g/dl (33.0-37.0); MONO # 0.8 10*3/uL (0.1-1.0); MONO % 8.3 % (3.0-9.0); NEUT # 6.4 10*3/uL (2.3-7.9); NEUT % 66.4 % (47.0-73.0); PLATELET COUNT AUTOMATED 195 10*3/uL (130-400); RED BLOOD COUNT 4.69 10*6/uL (4.10-5.10); RED CELL DISTRI WIDTH 12.8 % (0-14.5); WHITE BLOOD COUNT 9.6 10*3/uL (4.8-10.8)
[2019-08-03 17:02] LABS: ALBUMIN 3.3 gm/dl (3.1-4.5); ALKALINE PHOSPHATASE 92 U/L (45-117); BUN 12 mg/dl (7-24); CHLORIDE 106 mmol/L (98-107); CREATININE 1.09 mg/dL (0.55-1.02); SGOT/AST 10 IU/L (3-35); SGPT/ALT 21 U/L (12-78); SODIUM 140 mmol/L (136-145)
[2019-08-03 17:03] LABS: TROPONIN I < 0.015 ng/ml (<0.045)
== END 2019-08-03 18:04 | disposition home or self-care (01) ==
LOC: ED 16:02
PROVIDERS: Emergency Medicine
DX: R00.2 Palpitations (principal); T45.2X5A Adverse effect of vitamins, initial encounter; K14.8 Other diseases of tongue; R13.10 Dysphagia, unspecified; J45.909 Unspecified asthma, uncomplicated; E03.9 Hypothyroidism, unspecified; E66.01 Morbid (severe) obesity due to excess calories; I12.9 Hypertensive chronic kidney disease with stage 1 through stage 4 chronic kidney disease, or unspecified chronic kidney disease; N18.3 Chronic kidney disease, stage 3 (moderate); Z91.018 Allergy to other foods; Z88.2 Allergy status to sulfonamides; Z88.1 Allergy status to other antibiotic agents; Z91.041 Radiographic dye allergy status; Z79.899 Other long term (current) drug therapy; Z68.43 Body mass index [BMI] 50.0-59.9, adult; Y92.89 Other specified places as the place of occurrence of the external cause

== ENCOUNTER → 2019-09-13 | Outpatient (CLI) | payer BC ==
[2019-09-13 11:47] LABS: BASO # 0.1 10*3/uL (0.0-0.1); BASO % 0.7 % (0.0-1.0); EOS # 0.2 10*3/uL (0.0-0.4); HEMATOCRIT 44.6 % (37.0-47.0); HEMOGLOBIN 14.4 g/dl (12.0-16.0); LYMPH # 2.2 10*3/uL (1.3-4.4); LYMPH % 24.6 % (27.0-41.0); MEAN CELL VOLUME 90.3 fl (81.0-99.0); MEAN CORPUSCULAR HGB 29.1 pg (27.0-31.0); MEAN CORPUSCULAR HGB CONC 32.3 g/dl (33.0-37.0); MEAN PLATELET VOLUME 10.1 fl (9.6-12.3); MONO # 0.6 10*3/uL (0.1-1.0); MONO % 7.3 % (3.0-9.0); NEUT # 5.7 10*3/uL (2.3-7.9); NEUT % 65.1 % (47.0-73.0); PLATELET COUNT AUTOMATED 221 10*3/uL (130-400); RED BLOOD COUNT 4.94 10*6/uL (4.10-5.10); RED CELL DISTRI WIDTH 13.2 % (0-14.5); WHITE BLOOD COUNT 8.8 10*3/uL (4.8-10.8)
[2019-09-13 12:08] LABS: BUN 14 mg/dl (7-24); CREATININE 1.06 mg/dL (0.55-1.02); SGOT/AST 13 IU/L (3-35); SGPT/ALT 21 U/L (12-78)
[2019-09-13 12:11] LABS: FREE T4 1.32 ng/dl (0.76-1.46)
[2019-09-13 12:16] LABS: THYROID STIM HORMONE (HS) 0.54 uIU/ml (0.358-4.75)
== END | disposition home or self-care (01) ==
LOC: LAB 11:17
PROVIDERS: Internal Medicine Endocrinology, Diabetes & Metabolism; Specialist
DX: E89.0 Postprocedural hypothyroidism (principal); Z98.890 Other specified postprocedural states

== ENCOUNTER → 2019-10-10 | Outpatient (CLI) | payer BC ==
[2019-10-10 10:34] LABS: BUN 21 mg/dl (7-24); CHLORIDE 108 mmol/L (98-107); CREATININE 1.01 mg/dL (0.55-1.02); POTASSIUM 4.1 mmol/L (3.5-5.1); SODIUM 139 mmol/L (136-145)
== END | disposition home or self-care (01) ==
LOC: LAB 09:46
PROVIDERS: Specialist
DX: R79.0 Abnormal level of blood mineral (principal)

== ENCOUNTER → 2019-10-20 | Outpatient (CLI) | payer BC ==
[2019-10-20 13:17] LABS: ALBUMIN 3.5 gm/dl (3.1-4.5); ALKALINE PHOSPHATASE 99 U/L (45-117); BUN 18 mg/dl (7-24); CHLORIDE 111 mmol/L (98-107); CHOLESTEROL 180 mg/dL (<200); CREATININE 1.02 mg/dL (0.55-1.02); FREE T4 1.26 ng/dl (0.76-1.46); HDL CHOLESTEROL 50 mg/dl (40-60); LDL CHOLESTEROL 105 mg/dL (9-159); POTASSIUM 4.1 mmol/L (3.5-5.1); SGOT/AST 11 IU/L (3-35); SGPT/ALT 20 U/L (12-78); SODIUM 141 mmol/L (136-145); TOTAL PROTEIN 7.2 gm/dL (6.4-8.2); TRIGLYCERIDES 127 mg/dl (<150); VLDL CHOLESTEROL 25 mg/dL (6-40)
[2019-10-20 13:23] LABS: THYROID STIM HORMONE (HS) 0.348 uIU/ml (0.358-4.75)
== END | disposition home or self-care (01) ==
LOC: LAB 11:40
PROVIDERS: Internal Medicine Endocrinology, Diabetes & Metabolism
DX: E89.0 Postprocedural hypothyroidism (principal); E55.9 Vitamin D deficiency, unspecified; R73.02 Impaired glucose tolerance (oral)

== ENCOUNTER → 2019-10-28 | Outpatient (CLI) | payer BC | END | disposition home or self-care (01) | LOC: RESCLI 00:51 | DX: Z71.3 Dietary counseling and surveillance (principal); F41.9 Anxiety disorder, unspecified; I10 Essential (primary) hypertension; F32.9 Major depressive disorder, single episode, unspecified; E55.9 Vitamin D deficiency, unspecified; J30.9 Allergic rhinitis, unspecified; N39.41 Urge incontinence; E89.0 Postprocedural hypothyroidism; M79.7 Fibromyalgia; I49.9 Cardiac arrhythmia, unspecified; E78.00 Pure hypercholesterolemia, unspecified; R73.02 Impaired glucose tolerance (oral); Z79.899 Other long term (current) drug therapy; Z90.89 Acquired absence of other organs; Z88.2 Allergy status to sulfonamides; Z90.49 Acquired absence of other specified parts of digestive tract; Z88.8 Allergy status to other drugs, medicaments and biological substances ==

== ENCOUNTER → 2019-11-25 | Outpatient (CLI) | payer BC ==
[2019-11-25 13:20] LABS: FREE T4 1.24 ng/dl (0.76-1.46)
[2019-11-25 13:25] LABS: THYROID STIM HORMONE (HS) 0.662 uIU/ml (0.358-4.75)
== END | disposition home or self-care (01) ==
LOC: LAB 12:09
PROVIDERS: Internal Medicine Endocrinology, Diabetes & Metabolism
DX: E89.0 Postprocedural hypothyroidism (principal)

== ENCOUNTER 2019-11-29 06:04 | Emergency (ER) | payer BC ==
[~2019-11-29] VITALS: Ht 182.8 cm; Wt 172.4 kg
[2019-11-29 07:14] LABS: BASO # 0.1 10*3/uL (0.0-0.1); BASO % 0.6 % (0.0-1.0); EOS # 0.2 10*3/uL (0.0-0.4); EOS % 1.8 % (1.0-4.0); HEMATOCRIT 43.6 % (37.0-47.0); HEMOGLOBIN 13.8 g/dl (12.0-16.0); LYMPH # 2.5 10*3/uL (1.3-4.4); LYMPH % 23.3 % (27.0-41.0); MEAN CELL VOLUME 89.3 fl (81.0-99.0); MEAN CORPUSCULAR HGB 28.3 pg (27.0-31.0); MEAN CORPUSCULAR HGB CONC 31.7 g/dl (33.0-37.0); MEAN PLATELET VOLUME 9.8 fl (9.6-12.3); MONO # 0.9 10*3/uL (0.1-1.0); MONO % 8.3 % (3.0-9.0); NEUT % 65.6 % (47.0-73.0); PLATELET COUNT AUTOMATED 212 10*3/uL (130-400); RED BLOOD COUNT 4.88 10*6/uL (4.10-5.10); RED CELL DISTRI WIDTH 13.3 % (0-14.5); WHITE BLOOD COUNT 10.6 10*3/uL (4.8-10.8)
[2019-11-29 07:27] LABS: INTERNATIONAL NORM RATIO 0.9 (2.0-3.5)
[2019-11-29 07:33] LABS: ALBUMIN 3.6 gm/dl (3.1-4.5); ALKALINE PHOSPHATASE 108 U/L (45-117); BUN 14 mg/dl (7-24); CHLORIDE 107 mmol/L (98-107); CREATININE 1.03 mg/dL (0.55-1.02); POTASSIUM 4.1 mmol/L (3.5-5.1); SGOT/AST 10 IU/L (3-35); SGPT/ALT 18 U/L (12-78); SODIUM 141 mmol/L (136-145); TOTAL PROTEIN 7.2 gm/dL (6.4-8.2)
[2019-11-29 07:35] LABS: TROPONIN I < 0.015 ng/ml (<0.045)
[2019-11-29 07:40] LABS: THYROID STIM HORMONE (HS) 0.934 uIU/ml (0.358-4.75)
[2019-11-29 09:47] LABS: BACTERIA 4+; BILIRUBIN NEGATIVE (NEGATIVE); BLOOD NEGATIVE (NEGATIVE); CLARITY CLOUDY (CLEAR); COLOR YELLOW (YELLOW); GLUCOSE NEGATIVE (NEGATIVE); KETONE NEGATIVE (NEGATIVE); LEUKO ESTERASE NEGATIVE (NEGATIVE); NITRITE POSITIVE (NEGATIVE); SPECIFIC GRAVITY 1.025 (1.005-1.030); UROBILINOGEN 0.2 E.U./dl (0.2-1.0)
== END 2019-11-29 12:10 | disposition home or self-care (01) ==
LOC: ED 06:04
PROVIDERS: Emergency Medicine
DX: R55 Syncope and collapse (principal); E03.9 Hypothyroidism, unspecified; I10 Essential (primary) hypertension; J45.909 Unspecified asthma, uncomplicated; Z88.8 Allergy status to other drugs, medicaments and biological substances; Z88.2 Allergy status to sulfonamides; Z91.018 Allergy to other foods; Z79.2 Long term (current) use of antibiotics; Z79.899 Other long term (current) drug therapy; Z90.710 Acquired absence of both cervix and uterus

== ENCOUNTER → 2019-12-07 | Outpatient (CLI) | payer BC ==
[2019-12-07 11:12] LABS: LIPASE 112 U/L (73-393)
== END | disposition home or self-care (01) ==
LOC: RESCLI 08:31
PROVIDERS: Student in an Organized Health Care Education/Training Program
DX: J01.90 Acute sinusitis, unspecified (principal); D51.0 Vitamin B12 deficiency anemia due to intrinsic factor deficiency; J02.9 Acute pharyngitis, unspecified; I47.1 Supraventricular tachycardia; F32.9 Major depressive disorder, single episode, unspecified; E04.2 Nontoxic multinodular goiter; E06.3 Autoimmune thyroiditis; E55.9 Vitamin D deficiency, unspecified; E03.9 Hypothyroidism, unspecified; Z91.09 Other allergy status, other than to drugs and biological substances; E89.0 Postprocedural hypothyroidism; I49.9 Cardiac arrhythmia, unspecified; M19.90 Unspecified osteoarthritis, unspecified site; E78.00 Pure hypercholesterolemia, unspecified; J30.2 Other seasonal allergic rhinitis; I10 Essential (primary) hypertension; E66.01 Morbid (severe) obesity due to excess calories; F41.9 Anxiety disorder, unspecified; M79.7 Fibromyalgia; N39.41 Urge incontinence; E78.5 Hyperlipidemia, unspecified; E16.1 Other hypoglycemia; R10.13 Epigastric pain; R13.14 Dysphagia, pharyngoesophageal phase; R20.0 Anesthesia of skin; R53.83 Other fatigue; R10.11 Right upper quadrant pain; Z68.43 Body mass index [BMI] 50.0-59.9, adult; Z79.899 Other long term (current) drug therapy; Z90.49 Acquired absence of other specified parts of digestive tract; Z90.89 Acquired absence of other organs

== ENCOUNTER → 2019-12-22 | Outpatient (CLI) | payer BC | END | disposition home or self-care (01) | LOC: CARD 13:53 | DX: I51.7 Cardiomegaly (principal); R55 Syncope and collapse ==

== ENCOUNTER → 2020-03-22 | Outpatient (CLI) | payer BC ==
[2020-03-22 16:11] LABS: BACTERIA 2+; BILIRUBIN NEGATIVE (NEGATIVE); BLOOD NEGATIVE (NEGATIVE); CLARITY SL CLOUDY (CLEAR); COLOR YELLOW (YELLOW); EPITHELIAL CELLS TNTC; GLUCOSE NEGATIVE (NEGATIVE); KETONE NEGATIVE (NEGATIVE); LEUKO ESTERASE TRACE (NEGATIVE); NITRITE NEGATIVE (NEGATIVE); RBC 0-2 rbc/hpf (0-2); UROBILINOGEN 0.2 E.U./dl (0.2-1.0)
== END | disposition home or self-care (01) ==
LOC: LAB 15:12
PROVIDERS: Student in an Organized Health Care Education/Training Program
DX: N39.0 Urinary tract infection, site not specified (principal)

== ENCOUNTER 2020-04-09 18:23 | Emergency (ER) | payer BC ==
[~2020-04-09] VITALS: Ht 182.8 cm; Wt 158.8 kg
== END 2020-04-09 21:05 | disposition home or self-care (01) ==
LOC: ED 18:23
DX: M25.562 Pain in left knee (principal); M79.89 Other specified soft tissue disorders; Z88.2 Allergy status to sulfonamides; Z88.1 Allergy status to other antibiotic agents; Z79.899 Other long term (current) drug therapy

== ENCOUNTER → 2020-04-09 | Outpatient (CLI) | payer BC ==
[2020-04-09 16:45] LABS: FREE T4 1.37 ng/dl (0.76-1.46); THYROID STIM HORMONE (HS) 0.257 uIU/ml (0.358-4.75)
== END | disposition home or self-care (01) ==
LOC: LAB 15:20
PROVIDERS: Internal Medicine Endocrinology, Diabetes & Metabolism
DX: E89.0 Postprocedural hypothyroidism (principal)

== ENCOUNTER → 2020-05-10 | Outpatient (CLI) | payer BC | END | disposition home or self-care (01) | LOC: RESCLI 05:00 | DX: F41.9 Anxiety disorder, unspecified (principal); F32.9 Major depressive disorder, single episode, unspecified; J30.2 Other seasonal allergic rhinitis; E55.9 Vitamin D deficiency, unspecified; I10 Essential (primary) hypertension; R73.02 Impaired glucose tolerance (oral); I49.9 Cardiac arrhythmia, unspecified; E89.0 Postprocedural hypothyroidism; E16.1 Other hypoglycemia; K21.9 Gastro-esophageal reflux disease without esophagitis; N39.41 Urge incontinence; Z78.0 Asymptomatic menopausal state ==

== ENCOUNTER → 2020-06-19 | Outpatient (CLI) | payer BC | END | disposition home or self-care (01) | LOC: RESCLI 14:16 | PROVIDERS: ATTEND Internal Medicine | DX: M25.562 Pain in left knee (principal); G89.29 Other chronic pain; F41.9 Anxiety disorder, unspecified; F32.9 Major depressive disorder, single episode, unspecified; J30.2 Other seasonal allergic rhinitis; E55.9 Vitamin D deficiency, unspecified; I10 Essential (primary) hypertension; E89.0 Postprocedural hypothyroidism; N39.41 Urge incontinence; K21.9 Gastro-esophageal reflux disease without esophagitis; E16.1 Other hypoglycemia; I49.9 Cardiac arrhythmia, unspecified; M79.9 Soft tissue disorder, unspecified ==

== ENCOUNTER → 2020-07-17 | Outpatient (CLI) | payer BC | END | disposition home or self-care (01) | LOC: RESCLI 00:36 | PROVIDERS: ATTEND Internal Medicine | DX: E55.9 Vitamin D deficiency, unspecified (principal); R73.02 Impaired glucose tolerance (oral); M25.562 Pain in left knee; F41.9 Anxiety disorder, unspecified; F32.9 Major depressive disorder, single episode, unspecified; J30.2 Other seasonal allergic rhinitis; I10 Essential (primary) hypertension; E89.0 Postprocedural hypothyroidism; N39.41 Urge incontinence; K21.9 Gastro-esophageal reflux disease without esophagitis; E16.1 Other hypoglycemia; I49.9 Cardiac arrhythmia, unspecified; M79.7 Fibromyalgia; Z78.0 Asymptomatic menopausal state; Z79.899 Other long term (current) drug therapy; Z98.890 Other specified postprocedural states; Z88.8 Allergy status to other drugs, medicaments and biological substances ==

== ENCOUNTER → 2020-08-13 | Outpatient (CLI) | payer BC ==
[2020-08-13 15:20] LABS: BILIRUBIN Negative (Negative); BLOOD Negative (Negative); CLARITY Cloudy (Clear); COLOR Yellow (Yellow); GLUCOSE Negative (Negative); KETONE Negative (Negative); LEUKO ESTERASE Trace (Negative); NITRITE Positive (Negative); SPECIFIC GRAVITY 1.015 (1.001-1.030); UROBILINOGEN 0.2 E.U./dl (0.0-1.0)
[2020-08-13 15:29] LABS: BACTERIA 4+; EPITHELIAL CELLS 16-20; RBC 0-2 rbc/hpf (0-2); WBC 21-30 wbc/hpf (0-5)
== END | disposition home or self-care (01) ==
LOC: LAB 14:23
PROVIDERS: ATTEND Internal Medicine Nephrology
DX: N39.0 Urinary tract infection, site not specified (principal)

== ENCOUNTER 2020-08-14 12:25 | Emergency (ER) | payer BC ==
[2020-08-14 12:48] LABS: BASO # 0.1 10*3/uL (0.0-0.1); BASO % 0.7 % (0.0-1.0); EOS # 0.2 10*3/uL (0.0-0.4); EOS % 2.1 % (1.0-4.0); HEMATOCRIT 48.1 % (37.0-47.0); LYMPH # 2.3 10*3/uL (1.3-4.4); MEAN CELL VOLUME 88.6 fl (81.0-99.0); MEAN CORPUSCULAR HGB CONC 31.6 g/dl (33.0-37.0); MEAN PLATELET VOLUME 9.7 fl (9.6-12.3); MONO # 0.8 10*3/uL (0.1-1.0); MONO % 7.4 % (3.0-9.0); NEUT % 67.4 % (47.0-73.0); PLATELET COUNT AUTOMATED 240 10*3/uL (130-400); RED BLOOD COUNT 5.43 10*6/uL (4.10-5.10); RED CELL DISTRI WIDTH 13.2 % (0-14.5); WHITE BLOOD COUNT 10.3 10*3/uL (4.8-10.8)
[2020-08-14 12:59] LABS: ACT PARTIAL THROMBO TIME 28.6 SECONDS (20.0-32.1)
[2020-08-14 13:11] LABS: ALBUMIN 3.9 gm/dl (3.1-4.5); ALKALINE PHOSPHATASE 118 U/L (45-117); BUN 14 mg/dl (7-24); CHLORIDE 106 mmol/L (98-107); CREATININE 1.07 mg/dL (0.55-1.02); SGOT/AST 16 IU/L (3-35); SODIUM 140 mmol/L (136-145); TOTAL PROTEIN 8.1 gm/dL (6.4-8.2)
[2020-08-14 13:12] LABS: SGPT/ALT 19 U/L (12-78); TROPONIN I < 0.015 ng/ml (<0.045)
[2020-08-14] MEDS ORDERED: ZOFRAN4 MG PO (13:36)
== END 2020-08-14 13:50 | disposition home or self-care (01) ==
LOC: ED 12:25
PROVIDERS: Emergency Medicine
DX: I47.1 Supraventricular tachycardia (principal); N39.0 Urinary tract infection, site not specified; F32.9 Major depressive disorder, single episode, unspecified; M79.7 Fibromyalgia; Z88.2 Allergy status to sulfonamides; Z88.1 Allergy status to other antibiotic agents; Z79.899 Other long term (current) drug therapy; Z79.2 Long term (current) use of antibiotics; Z90.710 Acquired absence of both cervix and uterus; Z90.49 Acquired absence of other specified parts of digestive tract; Z90.89 Acquired absence of other organs; Z86.718 Personal history of other venous thrombosis and embolism

== ENCOUNTER → 2020-10-02 | Outpatient (CLI) | payer BC | END | disposition home or self-care (01) | LOC: RESCLI 11:13 | PROVIDERS: ATTEND Internal Medicine | DX: R07.81 Pleurodynia (principal); I10 Essential (primary) hypertension; F32.9 Major depressive disorder, single episode, unspecified; N39.41 Urge incontinence; K21.9 Gastro-esophageal reflux disease without esophagitis; M79.7 Fibromyalgia; J30.2 Other seasonal allergic rhinitis; I49.9 Cardiac arrhythmia, unspecified; E89.0 Postprocedural hypothyroidism; E55.9 Vitamin D deficiency, unspecified; R73.02 Impaired glucose tolerance (oral); U07.1 COVID-19; G47.00 Insomnia, unspecified; Z79.899 Other long term (current) drug therapy; Z88.8 Allergy status to other drugs, medicaments and biological substances ==

== ENCOUNTER → 2020-10-02 | Outpatient (CLI) | payer BC ==
[2020-10-02 16:38] LABS: ALBUMIN 3.5 gm/dl (3.1-4.5); ALKALINE PHOSPHATASE 111 U/L (45-117); BUN 16 mg/dl (7-24); CHLORIDE 108 mmol/L (98-107); CREATININE 1.06 mg/dL (0.55-1.02); POTASSIUM 4.2 mmol/L (3.5-5.1); SGOT/AST 10 IU/L (3-35); SGPT/ALT 20 U/L (12-78); SODIUM 140 mmol/L (136-145); TOTAL PROTEIN 7.8 gm/dL (6.4-8.2)
== END | disposition home or self-care (01) ==
LOC: LAB 15:49
PROVIDERS: Student in an Organized Health Care Education/Training Program; ATTEND Internal Medicine
DX: U07.1 COVID-19 (principal); R07.81 Pleurodynia

== ENCOUNTER → 2020-10-30 | Outpatient (CLI) | payer BC | END | disposition home or self-care (01) | LOC: RESCLI 03:05 | PROVIDERS: ATTEND Internal Medicine | DX: R73.02 Impaired glucose tolerance (oral) (principal); F41.9 Anxiety disorder, unspecified; I10 Essential (primary) hypertension; F32.9 Major depressive disorder, single episode, unspecified; N39.41 Urge incontinence; K21.9 Gastro-esophageal reflux disease without esophagitis; M79.7 Fibromyalgia; J30.2 Other seasonal allergic rhinitis; I49.9 Cardiac arrhythmia, unspecified; E89.0 Postprocedural hypothyroidism; E55.9 Vitamin D deficiency, unspecified; U07.1 COVID-19; Z78.0 Asymptomatic menopausal state; Z79.899 Other long term (current) drug therapy; Z88.8 Allergy status to other drugs, medicaments and biological substances ==

== ENCOUNTER → 2021-02-12 | Outpatient (CLI) | payer BC | END | disposition home or self-care (01) | LOC: RESCLI 00:19 | PROVIDERS: ATTEND Internal Medicine | DX: E78.1 Pure hyperglyceridemia (principal); F41.9 Anxiety disorder, unspecified; I10 Essential (primary) hypertension; F32.9 Major depressive disorder, single episode, unspecified; N39.41 Urge incontinence; K21.9 Gastro-esophageal reflux disease without esophagitis; M79.7 Fibromyalgia; E55.9 Vitamin D deficiency, unspecified; J30.2 Other seasonal allergic rhinitis; R73.02 Impaired glucose tolerance (oral); I49.9 Cardiac arrhythmia, unspecified; E89.0 Postprocedural hypothyroidism; E66.01 Morbid (severe) obesity due to excess calories; Z78.0 Asymptomatic menopausal state; Z79.899 Other long term (current) drug therapy; Z98.890 Other specified postprocedural states; Z88.8 Allergy status to other drugs, medicaments and biological substances; Z90.49 Acquired absence of other specified parts of digestive tract ==

== ENCOUNTER 2021-04-19 17:06 | Inpatient (IN) | payer BC ==
[~2021-04-19] VITALS: Ht 182.8 cm; Wt 167.8 kg
[2021-04-19 17:17] VITALS: BP 151/79
[2021-04-19 17:30] LABS: BASO # 0.1 10*3/uL (0.0-0.1); BASO % 0.6 % (0.0-1.0); EOS # 0.2 10*3/uL (0.0-0.4); EOS % 1.9 % (1.0-4.0); HEMATOCRIT 45.6 % (37.0-47.0); LYMPH # 2.8 10*3/uL (1.3-4.4); LYMPH % 27.2 % (27.0-41.0); MEAN CELL VOLUME 87.2 fl (81.0-99.0); MEAN CORPUSCULAR HGB 28.3 pg (27.0-31.0); MEAN CORPUSCULAR HGB CONC 32.5 g/dl (33.0-37.0); MEAN PLATELET VOLUME 9.8 fl (9.6-12.3); MONO # 0.9 10*3/uL (0.1-1.0); MONO % 9.2 % (3.0-9.0); NEUT # 6.3 10*3/uL (2.3-7.9); NEUT % 60.7 % (47.0-73.0); PLATELET COUNT AUTOMATED 239 10*3/uL (130-400); RED BLOOD COUNT 5.23 10*6/uL (4.10-5.10); RED CELL DISTRI WIDTH 13.4 % (0-14.5); WHITE BLOOD COUNT 10.3 10*3/uL (4.8-10.8)
[2021-04-19 17:44] LABS: ALBUMIN 3.8 gm/dl (3.1-4.5); ALKALINE PHOSPHATASE 114 U/L (45-117); BUN 15 mg/dl (7-24); CHLORIDE 106 mmol/L (98-107); CREATININE 1.06 mg/dL (0.55-1.02); POTASSIUM 4.3 mmol/L (3.5-5.1); SGOT/AST 14 IU/L (3-35); SGPT/ALT 19 U/L (12-78); SODIUM 136 mmol/L (136-145); TOTAL PROTEIN 7.9 gm/dL (6.4-8.2)
[2021-04-19 17:45] LABS: TROPONIN I < 0.015 ng/ml (<0.045)
[2021-04-19 18:00] VITALS: BP 127/75
[2021-04-19 18:30] VITALS: BP 130/77
[2021-04-19 20:00] VITALS: BP 128/74
[2021-04-20 04:33] VITALS: BP 132/70
[2021-04-20 06:19] LABS: CHLORIDE 107 mmol/L (98-107); POTASSIUM 3.6 mmol/L (3.5-5.1); SODIUM 139 mmol/L (136-145)
[2021-04-20 06:25] LABS: BASO # 0.1 10*3/uL (0.0-0.1); BASO % 0.7 % (0.0-1.0); EOS # 0.2 10*3/uL (0.0-0.4); HEMATOCRIT 41.2 % (37.0-47.0); LYMPH # 2.8 10*3/uL (1.3-4.4); LYMPH % 31.4 % (27.0-41.0); MEAN CORPUSCULAR HGB 28.3 pg (27.0-31.0); MEAN CORPUSCULAR HGB CONC 31.8 g/dl (33.0-37.0); MEAN PLATELET VOLUME 10.2 fl (9.6-12.3); MONO # 0.8 10*3/uL (0.1-1.0); MONO % 9.1 % (3.0-9.0); NEUT % 56.5 % (47.0-73.0); PLATELET COUNT AUTOMATED 192 10*3/uL (130-400); RED BLOOD COUNT 4.63 10*6/uL (4.10-5.10); RED CELL DISTRI WIDTH 13.5 % (0-14.5); WHITE BLOOD COUNT 8.8 10*3/uL (4.8-10.8)
[2021-04-20 06:26] LABS: ALBUMIN 3.1 gm/dl (3.1-4.5); ALKALINE PHOSPHATASE 99 U/L (45-117); BUN 16 mg/dl (7-24); CREATININE 0.99 mg/dL (0.55-1.02); SGOT/AST 10 IU/L (3-35); SGPT/ALT 18 U/L (12-78); TOTAL PROTEIN 6.6 gm/dL (6.4-8.2)
[2021-04-20] MEDS ORDERED: Synthroid,Lev200 MCG PO (07:18)
[2021-04-20] MEDS ORDERED: OMEPRAZOLE MAGN20 MG PO (07:20)
[2021-04-20] MEDS ORDERED: BUSPIRONE HCL10 MG PO (07:21)
[2021-04-20 07:22] VITALS: BP 124/66
== END 2021-04-20 12:40 | disposition home or self-care (01) | DRG 309 ==
LOC: ED 17:06 → EDHOLD 18:24 → 5E 04-20 09:51 → EDHOLD 04-20 10:36
PROVIDERS: Emergency Medicine; Internal Medicine; ADMIT Internal Medicine; ATTEND Internal Medicine
DX: I47.1 Supraventricular tachycardia (principal); E03.9 Hypothyroidism, unspecified; J45.909 Unspecified asthma, uncomplicated; I12.9 Hypertensive chronic kidney disease with stage 1 through stage 4 chronic kidney disease, or unspecified chronic kidney disease; F41.1 Generalized anxiety disorder; N18.31 Chronic kidney disease, stage 3a; Z90.49 Acquired absence of other specified parts of digestive tract; Z90.710 Acquired absence of both cervix and uterus; Z80.1 Family history of malignant neoplasm of trachea, bronchus and lung; Z82.49 Family history of ischemic heart disease and other diseases of the circulatory system; Z88.2 Allergy status to sulfonamides; Z68.43 Body mass index [BMI] 50.0-59.9, adult; Z88.8 Allergy status to other drugs, medicaments and biological substances; Z79.899 Other long term (current) drug therapy

== ENCOUNTER → 2021-05-08 | Outpatient (CLI) | payer BC ==
[~2021-05-08] MED LIST changes: +BUSPIRONE HCL10 MG PO; +OMEPRAZOLE MAGN20 MG PO; +Synthroid,Lev200 MCG PO
== END | disposition home or self-care (01) ==
LOC: RESCLI 02:08
PROVIDERS: ATTEND Internal Medicine Nephrology
DX: I47.1 Supraventricular tachycardia (principal); E89.0 Postprocedural hypothyroidism; I10 Essential (primary) hypertension; F41.9 Anxiety disorder, unspecified; E78.5 Hyperlipidemia, unspecified; K21.9 Gastro-esophageal reflux disease without esophagitis; M17.12 Unilateral primary osteoarthritis, left knee; N95.9 Unspecified menopausal and perimenopausal disorder; E66.01 Morbid (severe) obesity due to excess calories; N39.498 Other specified urinary incontinence; E55.9 Vitamin D deficiency, unspecified; J30.2 Other seasonal allergic rhinitis; Z79.899 Other long term (current) drug therapy

== ENCOUNTER → 2021-06-28 | Outpatient (CLI) | payer BC | END | disposition home or self-care (01) | LOC: RESCLI 00:53 | PROVIDERS: ATTEND Internal Medicine | DX: I47.1 Supraventricular tachycardia (principal); I10 Essential (primary) hypertension; F41.9 Anxiety disorder, unspecified; E78.5 Hyperlipidemia, unspecified; K21.9 Gastro-esophageal reflux disease without esophagitis; M17.12 Unilateral primary osteoarthritis, left knee; N95.9 Unspecified menopausal and perimenopausal disorder; E66.01 Morbid (severe) obesity due to excess calories; J30.2 Other seasonal allergic rhinitis; E89.0 Postprocedural hypothyroidism; R73.02 Impaired glucose tolerance (oral); N39.498 Other specified urinary incontinence; Z79.899 Other long term (current) drug therapy; Z98.890 Other specified postprocedural states ==

== ENCOUNTER → 2021-07-03 | Outpatient (CLI) | payer BC ==
[2021-07-03 16:09] LABS: ALBUMIN 3.5 gm/dl (3.1-4.5); ALKALINE PHOSPHATASE 125 U/L (45-117); BUN 19 mg/dl (7-24); CHLORIDE 105 mmol/L (98-107); CHOLESTEROL 208 mg/dL (<200); CREATININE 1.05 mg/dL (0.55-1.02); FREE T4 1.05 ng/dl (0.76-1.46); LDL CHOLESTEROL 117 mg/dL (9-159); POTASSIUM 3.8 mmol/L (3.5-5.1); SGOT/AST 9 IU/L (3-35); SGPT/ALT 21 U/L (12-78); SODIUM 139 mmol/L (136-145); TOTAL PROTEIN 7.6 gm/dL (6.4-8.2); TRIGLYCERIDES 201 mg/dl (<150)
== END | disposition home or self-care (01) ==
LOC: LAB 14:56
PROVIDERS: ATTEND Internal Medicine Endocrinology, Diabetes & Metabolism
DX: E89.0 Postprocedural hypothyroidism (principal); R73.02 Impaired glucose tolerance (oral)

== ENCOUNTER → 2021-09-04 | Outpatient (CLI) | payer BC | END | disposition home or self-care (01) | LOC: MAMMO 00:09 | PROVIDERS: ATTEND Nurse Practitioner | DX: Z12.31 Encounter for screening mammogram for malignant neoplasm of breast (principal); N64.89 Other specified disorders of breast ==

== ENCOUNTER 2021-12-03 13:07 | Emergency (ER) | payer BC ==
[~2021-12-03] VITALS: Wt 178.3 kg
[2021-12-03 14:19] LABS: BASO % 0.2 % (0.0-1.0); EOS # 0.1 10*3/uL (0.0-0.4); HEMATOCRIT 43.1 % (37.0-47.0); LYMPH # 1.2 10*3/uL (1.3-4.4); LYMPH % 12.7 % (27.0-41.0); MEAN CELL VOLUME 88.5 fl (81.0-99.0); MEAN CORPUSCULAR HGB 28.5 pg (27.0-31.0); MEAN CORPUSCULAR HGB CONC 32.3 g/dl (33.0-37.0); MEAN PLATELET VOLUME 9.9 fl (9.6-12.3); MONO # 0.8 10*3/uL (0.1-1.0); MONO % 8.6 % (3.0-9.0); NEUT # 6.9 10*3/uL (2.3-7.9); NEUT % 76.8 % (47.0-73.0); PLATELET COUNT AUTOMATED 191 10*3/uL (130-400); RED BLOOD COUNT 4.87 10*6/uL (4.10-5.10); RED CELL DISTRI WIDTH 13.7 % (0-14.5)
[2021-12-03 14:36] LABS: CREATININE 1.22 mg/dL (0.55-1.02); POTASSIUM 3.5 mmol/L (3.5-5.1); TOTAL PROTEIN 6.8 gm/dL (6.4-8.2)
[2021-12-03 14:40] LABS: BILIRUBIN 1+ (Negative); BLOOD Negative (Negative); CLARITY Cloudy (Clear); COLOR Dark Yellow (Yellow); GLUCOSE Trace (Negative); KETONE Trace (Negative); LEUKO ESTERASE Negative (Negative); NITRITE Negative (Negative); PH 5.5 (4.5-8.0); SPECIFIC GRAVITY >= 1.030 (1.001-1.030)
[2021-12-03 14:50] LABS: MUCOUS 2+; RBC 0-2 rbc/hpf (0-2)
[2021-12-03] MEDS ORDERED: ZOFRAN4 MG PO (15:57)
== END 2021-12-03 15:59 | disposition home or self-care (01) ==
LOC: ED 13:07
PROVIDERS: Emergency Medicine
DX: R11.2 Nausea with vomiting, unspecified (principal); R19.7 Diarrhea, unspecified; Z88.2 Allergy status to sulfonamides; Z88.1 Allergy status to other antibiotic agents; Z79.899 Other long term (current) drug therapy; Z90.49 Acquired absence of other specified parts of digestive tract; Z98.890 Other specified postprocedural states; Z90.89 Acquired absence of other organs

== ENCOUNTER → 2021-12-21 | Outpatient (CLI) | payer BC | END | disposition home or self-care (01) | LOC: LAB 14:43 | PROVIDERS: ATTEND Nurse Practitioner Family | DX: R19.7 Diarrhea, unspecified (principal) ==

== ENCOUNTER → 2021-12-27 | Outpatient (CLI) | payer BC | END | disposition home or self-care (01) | LOC: RESCLI 00:35 | PROVIDERS: ATTEND Internal Medicine | DX: K21.9 Gastro-esophageal reflux disease without esophagitis (principal); I47.1 Supraventricular tachycardia; E55.9 Vitamin D deficiency, unspecified; E89.0 Postprocedural hypothyroidism; E66.01 Morbid (severe) obesity due to excess calories; J30.2 Other seasonal allergic rhinitis; I10 Essential (primary) hypertension; E78.5 Hyperlipidemia, unspecified; M17.12 Unilateral primary osteoarthritis, left knee; N95.9 Unspecified menopausal and perimenopausal disorder; N39.41 Urge incontinence; F41.9 Anxiety disorder, unspecified; Z90.49 Acquired absence of other specified parts of digestive tract; Z79.899 Other long term (current) drug therapy; Z98.890 Other specified postprocedural states ==

== ENCOUNTER → 2022-01-06 | Outpatient (CLI) | payer BC | END | disposition home or self-care (01) | LOC: US 10:50 | PROVIDERS: ATTEND Nurse Practitioner Family | DX: R11.0 Nausea (principal); K76.0 Fatty (change of) liver, not elsewhere classified ==

== ENCOUNTER → 2022-01-24 | Outpatient (CLI) | payer BC ==
[2022-01-24 12:01] LABS: BASO # 0.1 10*3/uL (0.0-0.1); BASO % 0.6 % (0.0-1.0); EOS # 0.2 10*3/uL (0.0-0.4); EOS % 2.1 % (1.0-4.0); HEMATOCRIT 44.3 % (37.0-47.0); LYMPH # 2.2 10*3/uL (1.3-4.4); LYMPH % 24.1 % (27.0-41.0); MEAN CELL VOLUME 84.4 fl (81.0-99.0); MEAN CORPUSCULAR HGB 27.8 pg (27.0-31.0); MEAN PLATELET VOLUME 9.6 fl (9.6-12.3); MONO # 0.7 10*3/uL (0.1-1.0); MONO % 7.5 % (3.0-9.0); NEUT # 5.9 10*3/uL (2.3-7.9); NEUT % 65.4 % (47.0-73.0); PLATELET COUNT AUTOMATED 231 10*3/uL (130-400); RED BLOOD COUNT 5.25 10*6/uL (4.10-5.10); RED CELL DISTRI WIDTH 13.2 % (0-14.5); WHITE BLOOD COUNT 9.1 10*3/uL (4.8-10.8)
[2022-01-24 12:31] LABS: ALKALINE PHOSPHATASE 124 U/L (45-117); BUN 16 mg/dl (7-24); CHLORIDE 105 mmol/L (98-107); CHOLESTEROL 192 mg/dL (<200); CREATININE 1.11 mg/dL (0.55-1.02); IRON 69 ug/dL (50-170); LDL CHOLESTEROL 118 mg/dL (9-159); POTASSIUM 4.1 mmol/L (3.5-5.1); SGOT/AST 11 IU/L (3-35); SGPT/ALT 21 U/L (12-78); SODIUM 138 mmol/L (136-145); TOTAL IRON BINDING CAPACITY 293 ug/dl (250-450); TOTAL PROTEIN 7.9 gm/dL (6.4-8.2); TRIGLYCERIDES 107 mg/dl (<150)
[2022-01-25 04:06] LABS: HEP B CORE AB, IGM Negative (Negative); HEPATITIS A AB, TOTAL Negative (Negative); HEPATITIS B SURFACE AB Non Reactive (.); HEPATITIS B SURFACE AG Negative (Negative); HEPATITIS C VIRUS ANTIBODY <0.1 s/co (0.0-0.9)
[2022-01-25 05:07] LABS: IMMUNOGLOBULIN G, QNT 1001 mg/dL (586-1602)
[2022-01-25 15:07] LABS: ANTI-SMOOTH MUSCLE ANTIBODY 8 Units (0-19)
== END | disposition home or self-care (01) ==
LOC: LAB 11:28
PROVIDERS: ATTEND Nurse Practitioner Family
DX: K76.0 Fatty (change of) liver, not elsewhere classified (principal)

== ENCOUNTER → 2022-04-23 | Outpatient (CLI) | payer BC ==
[2022-04-23 18:05] LABS: CREATININE 1.18 mg/dL (0.55-1.02); POTASSIUM 4.3 mmol/L (3.5-5.1)
== END | disposition home or self-care (01) ==
LOC: RESCLI 16:07
PROVIDERS: Internal Medicine; ATTEND Internal Medicine
DX: I10 Essential (primary) hypertension (principal); E03.9 Hypothyroidism, unspecified; E78.5 Hyperlipidemia, unspecified; E55.9 Vitamin D deficiency, unspecified; Z90.49 Acquired absence of other specified parts of digestive tract; Z88.8 Allergy status to other drugs, medicaments and biological substances; M25.512 Pain in left shoulder; Z79.899 Other long term (current) drug therapy

== ENCOUNTER → 2022-07-01 | Outpatient (CLI) | payer BC | END | disposition home or self-care (01) | LOC: RESCLI 00:23 | PROVIDERS: ATTEND Internal Medicine | DX: E55.9 Vitamin D deficiency, unspecified (principal); E78.5 Hyperlipidemia, unspecified; R53.83 Other fatigue; R73.03 Prediabetes; E89.0 Postprocedural hypothyroidism; K58.0 Irritable bowel syndrome with diarrhea; M79.7 Fibromyalgia; I47.1 Supraventricular tachycardia; E66.01 Morbid (severe) obesity due to excess calories; J30.2 Other seasonal allergic rhinitis; I10 Essential (primary) hypertension; N39.41 Urge incontinence; F41.1 Generalized anxiety disorder; N95.9 Unspecified menopausal and perimenopausal disorder; M25.512 Pain in left shoulder; Z90.49 Acquired absence of other specified parts of digestive tract; Z98.890 Other specified postprocedural states; Z88.8 Allergy status to other drugs, medicaments and biological substances; Z79.899 Other long term (current) drug therapy ==

== ENCOUNTER → 2022-07-10 | Outpatient (CLI) | payer BC ==
[2022-07-10 11:52] LABS: BASO # 0.1 10*3/uL (0.0-0.1); BASO % 0.7 % (0.0-1.0); EOS # 0.2 10*3/uL (0.0-0.4); EOS % 1.9 % (1.0-4.0); LYMPH # 2.2 10*3/uL (1.3-4.4); LYMPH % 25.4 % (27.0-41.0); MEAN CELL VOLUME 89.5 fl (81.0-99.0); MEAN CORPUSCULAR HGB CONC 32.4 g/dl (33.0-37.0); MEAN PLATELET VOLUME 10.1 fl (9.6-12.3); MONO # 0.6 10*3/uL (0.1-1.0); MONO % 7.4 % (3.0-9.0); NEUT # 5.5 10*3/uL (2.3-7.9); NEUT % 64.1 % (47.0-73.0); PLATELET COUNT AUTOMATED 219 10*3/uL (130-400); RED BLOOD COUNT 5.03 10*6/uL (4.10-5.10); RED CELL DISTRI WIDTH 13.6 % (0-14.5); WHITE BLOOD COUNT 8.5 10*3/uL (4.8-10.8)
[2022-07-10 12:12] LABS: CREATININE 1.16 mg/dL (0.55-1.02); POTASSIUM 4.3 mmol/L (3.5-5.1); TOTAL PROTEIN 7.3 gm/dL (6.4-8.2)
== END | disposition home or self-care (01) ==
LOC: LAB 11:11
PROVIDERS: ATTEND Internal Medicine
DX: E89.0 Postprocedural hypothyroidism (principal); E55.9 Vitamin D deficiency, unspecified; R53.83 Other fatigue; E78.5 Hyperlipidemia, unspecified; R73.03 Prediabetes

== ENCOUNTER → 2022-09-02 | Outpatient (CLI) | payer BC ==
[2022-09-02 10:39] LABS: INTERNATIONAL NORM RATIO 0.9 (2.0-3.5)
== END | disposition home or self-care (01) ==
LOC: LAB 10:03
PROVIDERS: ATTEND Orthopaedic Surgery
DX: M17.12 Unilateral primary osteoarthritis, left knee (principal); I10 Essential (primary) hypertension; Z86.718 Personal history of other venous thrombosis and embolism

== ENCOUNTER → 2022-09-16 | Outpatient (CLI) | payer BC | END | disposition home or self-care (01) | LOC: RESCLI 07:57 | PROVIDERS: ATTEND Internal Medicine | DX: E55.9 Vitamin D deficiency, unspecified (principal); J01.90 Acute sinusitis, unspecified; E78.5 Hyperlipidemia, unspecified; E03.9 Hypothyroidism, unspecified; I10 Essential (primary) hypertension; F41.1 Generalized anxiety disorder; Z88.9 Allergy status to unspecified drugs, medicaments and biological substances; Z88.2 Allergy status to sulfonamides; Z90.49 Acquired absence of other specified parts of digestive tract; Z98.890 Other specified postprocedural states; Z82.49 Family history of ischemic heart disease and other diseases of the circulatory system; Z79.899 Other long term (current) drug therapy ==

== ENCOUNTER 2022-09-19 15:54 | Emergency (ER) | payer BC ==
[~2022-09-19] VITALS: Ht 182.8 cm; Wt 165.6 kg
[2022-09-19] MEDS ORDERED: PREDNISONE20 M1 PO (18:50)
== END 2022-09-19 19:40 | disposition home or self-care (01) ==
LOC: ED 15:54
DX: J40 Bronchitis, not specified as acute or chronic (principal); Z20.822 Contact with and (suspected) exposure to COVID-19; Z88.1 Allergy status to other antibiotic agents; Z79.899 Other long term (current) drug therapy; Z90.49 Acquired absence of other specified parts of digestive tract; Z90.710 Acquired absence of both cervix and uterus; Z90.89 Acquired absence of other organs

== ENCOUNTER → 2022-09-23 | Outpatient (CLI) | payer BC | END | disposition home or self-care (01) | LOC: RESCLI 02:51 | PROVIDERS: ATTEND Internal Medicine | DX: I12.9 Hypertensive chronic kidney disease with stage 1 through stage 4 chronic kidney disease, or unspecified chronic kidney disease (principal); N18.30 Chronic kidney disease, stage 3 unspecified; K21.9 Gastro-esophageal reflux disease without esophagitis; E55.9 Vitamin D deficiency, unspecified; J32.9 Chronic sinusitis, unspecified; E78.5 Hyperlipidemia, unspecified; G89.29 Other chronic pain; K58.0 Irritable bowel syndrome with diarrhea; J30.2 Other seasonal allergic rhinitis; E63.9 Nutritional deficiency, unspecified; F41.9 Anxiety disorder, unspecified; E66.01 Morbid (severe) obesity due to excess calories; N39.41 Urge incontinence; I47.1 Supraventricular tachycardia; M25.512 Pain in left shoulder; M79.7 Fibromyalgia; Z88.2 Allergy status to sulfonamides; Z88.8 Allergy status to other drugs, medicaments and biological substances; Z91.018 Allergy to other foods; Z82.49 Family history of ischemic heart disease and other diseases of the circulatory system; Z90.49 Acquired absence of other specified parts of digestive tract; Z98.890 Other specified postprocedural states ==

== ENCOUNTER → 2023-01-01 | Outpatient (CLI) | payer BC | END | disposition home or self-care (01) | LOC: MAMMO 09-15 11:30 → RESCLI 02:10 | PROVIDERS: ATTEND Internal Medicine | DX: K92.89 Other specified diseases of the digestive system (principal); E06.3 Autoimmune thyroiditis; K21.9 Gastro-esophageal reflux disease without esophagitis; Z88.2 Allergy status to sulfonamides; Z88.8 Allergy status to other drugs, medicaments and biological substances; Z98.890 Other specified postprocedural states; Z90.49 Acquired absence of other specified parts of digestive tract; Z79.899 Other long term (current) drug therapy ==

== ENCOUNTER → 2023-04-25 | Outpatient (CLI) | payer BC ==
[2023-04-25 10:17] LABS: BUN 13 mg/dl (9-23); CHLORIDE 106 mmol/L (98-107); SGPT/ALT 13 U/L (10-49)
== END | disposition home or self-care (01) ==
LOC: LAB 09:21
PROVIDERS: ATTEND Specialist
DX: M79.7 Fibromyalgia (principal); E55.9 Vitamin D deficiency, unspecified; R79.89 Other specified abnormal findings of blood chemistry

== ENCOUNTER → 2023-05-20 | Outpatient (CLI) | payer BC ==
[2023-05-20 12:33] LABS: ALKALINE PHOSPHATASE 114 U/L (46-116); BUN 15 mg/dl (9-23); CHLORIDE 106 mmol/L (98-107); CHOLESTEROL 204 mg/dL (<200); FREE T4 1.32 ng/dl (0.89-1.76); LDL CHOLESTEROL 127 mg/dL (9-159); POTASSIUM 4.3 mmol/L (3.4-5.1); SGPT/ALT 16 U/L (10-49); TOTAL PROTEIN 7.1 gm/dL (6.0-8.0); TRIGLYCERIDES 129 mg/dl (<150)
== END | disposition home or self-care (01) ==
LOC: LAB 11:47
PROVIDERS: ATTEND Internal Medicine
DX: E55.9 Vitamin D deficiency, unspecified (principal); E89.0 Postprocedural hypothyroidism; R73.9 Hyperglycemia, unspecified; E66.01 Morbid (severe) obesity due to excess calories

== ENCOUNTER → 2023-06-17 | Outpatient (CLI) | payer BC | END | disposition home or self-care (01) | LOC: RESCLI 01:20 | PROVIDERS: ATTEND Student in an Organized Health Care Education/Training Program | DX: M75.42 Impingement syndrome of left shoulder (principal); R53.83 Other fatigue; N39.490 Overflow incontinence; E06.3 Autoimmune thyroiditis; K21.9 Gastro-esophageal reflux disease without esophagitis; I47.1 Supraventricular tachycardia; J30.2 Other seasonal allergic rhinitis; E66.01 Morbid (severe) obesity due to excess calories; N39.41 Urge incontinence; E78.5 Hyperlipidemia, unspecified; F41.9 Anxiety disorder, unspecified; E55.9 Vitamin D deficiency, unspecified; Z12.31 Encounter for screening mammogram for malignant neoplasm of breast; K63.89 Other specified diseases of intestine; R73.9 Hyperglycemia, unspecified; Z98.890 Other specified postprocedural states; Z88.2 Allergy status to sulfonamides; Z88.8 Allergy status to other drugs, medicaments and biological substances; Z79.899 Other long term (current) drug therapy ==

== ENCOUNTER → 2023-06-18 | Outpatient (CLI) | payer BC ==
[2023-06-18 08:03] LABS: BILIRUBIN Negative (Negative); BLOOD Negative (Negative); CLARITY Clear (Clear); COLOR Yellow (Yellow); GLUCOSE Negative (Negative); KETONE Negative (Negative); LEUKO ESTERASE Trace (Negative); NITRITE Negative (Negative); PH 5.5 (4.5-8.0); SPECIFIC GRAVITY 1.015 (1.001-1.030); UROBILINOGEN 0.2 E.U./dl (0.0-1.0)
[2023-06-18 08:04] LABS: BASO % 0.6 % (0.0-1.0); EOS # 0.2 10*3/uL (0.0-0.4); EOS % 2.4 % (1.0-4.0); HEMATOCRIT 44.6 % (37.0-47.0); LYMPH # 2.4 10*3/uL (1.3-4.4); LYMPH % 34.5 % (27.0-41.0); MEAN CELL VOLUME 87.3 fl (81.0-99.0); MEAN CORPUSCULAR HGB CONC 32.1 g/dl (33.0-37.0); MEAN PLATELET VOLUME 9.8 fl (9.6-12.3); MONO # 0.6 10*3/uL (0.1-1.0); NEUT # 3.8 10*3/uL (2.3-7.9); NEUT % 54.1 % (47.0-73.0); PLATELET COUNT AUTOMATED 216 10*3/uL (130-400); RED BLOOD COUNT 5.11 10*6/uL (4.10-5.10); RED CELL DISTRI WIDTH 13.1 % (0-14.5)
[2023-06-18 08:13] LABS: URINE CREATININE RANDOM 95.69 mg/dL
[2023-06-18 08:37] LABS: ALKALINE PHOSPHATASE 120 U/L (46-116); BUN 14 mg/dl (9-23); CHLORIDE 104 mmol/L (98-107); POTASSIUM 4.1 mmol/L (3.4-5.1); SGPT/ALT 14 U/L (10-49); TOTAL PROTEIN 7.2 gm/dL (6.0-8.0)
[2023-06-18 08:39] LABS: VITAMIN D, 25-HYDROXY 57.8 ng/mL (30-100)
[2023-06-18 08:40] LABS: BACTERIA 2+; RBC 0-2 rbc/hpf (0-2)
== END | disposition home or self-care (01) ==
LOC: LAB 07:28
PROVIDERS: Internal Medicine; ATTEND Student in an Organized Health Care Education/Training Program
DX: E53.8 Deficiency of other specified B group vitamins (principal); R53.83 Other fatigue; N39.490 Overflow incontinence; R73.9 Hyperglycemia, unspecified; E06.3 Autoimmune thyroiditis

== ENCOUNTER → 2023-06-26 | Outpatient (CLI) | payer BC | END | disposition home or self-care (01) | LOC: LAB 07:02 | PROVIDERS: ATTEND Internal Medicine | DX: E34.9 Endocrine disorder, unspecified (principal) ==

== ENCOUNTER → 2023-09-09 | Outpatient (CLI) | payer BC | END | disposition home or self-care (01) | LOC: MAMMO 09:38 | PROVIDERS: ATTEND Internal Medicine | DX: Z12.31 Encounter for screening mammogram for malignant neoplasm of breast (principal) ==

== ENCOUNTER → 2023-09-16 | Outpatient (CLI) | payer BC | END | disposition home or self-care (01) | LOC: RESCLI 00:57 | PROVIDERS: ATTEND Family Medicine | DX: N39.41 Urge incontinence (principal); K62.89 Other specified diseases of anus and rectum; E53.8 Deficiency of other specified B group vitamins; F41.9 Anxiety disorder, unspecified; E55.9 Vitamin D deficiency, unspecified; E78.5 Hyperlipidemia, unspecified; M75.42 Impingement syndrome of left shoulder; J30.2 Other seasonal allergic rhinitis; K21.9 Gastro-esophageal reflux disease without esophagitis; Z88.2 Allergy status to sulfonamides; Z88.8 Allergy status to other drugs, medicaments and biological substances; Z82.49 Family history of ischemic heart disease and other diseases of the circulatory system; Z79.899 Other long term (current) drug therapy; Z90.49 Acquired absence of other specified parts of digestive tract ==

== ENCOUNTER → 2023-11-04 | Outpatient (CLI) | payer BC ==
[2023-11-04 16:32] LABS: BUN 14 mg/dl (9-23); SGPT/ALT 14 U/L (5-49)
== END | disposition home or self-care (01) ==
LOC: LAB 15:31
PROVIDERS: ATTEND Specialist
DX: M79.7 Fibromyalgia (principal)

== ENCOUNTER 2023-11-13 12:36 | Emergency (ER) | payer BC ==
[~2023-11-13] VITALS: Ht 185.4 cm; Wt 161.9 kg
[2023-11-13 13:35] LABS: BASO % 0.4 % (0.0-1.0); EOS # 0.1 10*3/uL (0.0-0.4); HEMATOCRIT 49.9 % (37.0-47.0); LYMPH # 0.4 10*3/uL (1.3-4.4); LYMPH % 4.1 % (27.0-41.0); MEAN CELL VOLUME 88.6 fl (81.0-99.0); MEAN CORPUSCULAR HGB 28.1 pg (27.0-31.0); MEAN CORPUSCULAR HGB CONC 31.7 g/dl (33.0-37.0); MEAN PLATELET VOLUME 9.7 fl (9.6-12.3); MONO # 0.5 10*3/uL (0.1-1.0); MONO % 5.3 % (3.0-9.0); NEUT # 8.1 10*3/uL (2.3-7.9); NEUT % 88.9 % (47.0-73.0); PLATELET COUNT AUTOMATED 207 10*3/uL (130-400); RED BLOOD COUNT 5.63 10*6/uL (4.10-5.10); RED CELL DISTRI WIDTH 13.3 % (0-14.5); WHITE BLOOD COUNT 9.2 10*3/uL (4.8-10.8)
[2023-11-13 13:58] LABS: POTASSIUM 4.4 mmol/L (3.4-5.1); TOTAL PROTEIN 7.4 gm/dL (6.0-8.0)
[2023-11-13 15:35] LABS: BILIRUBIN Negative (Negative); BLOOD Negative (Negative); CLARITY Cloudy (Clear); COLOR Yellow (Yellow); GLUCOSE 1+ (Negative); KETONE Negative (Negative); LEUKO ESTERASE Negative (Negative); NITRITE Negative (Negative); SPECIFIC GRAVITY >= 1.030 (1.001-1.030); UROBILINOGEN 0.2 E.U./dl (0.0-1.0)
[2023-11-13 15:47] LABS: BACTERIA TRACE; FINE GRANULAR CAST 0-2; RBC 0-2 rbc/hpf (0-2)
[2023-11-13 15:48] LABS: MUCOUS 1+
[2023-11-13] MEDS ORDERED: ONDANSETRON4 MG SL (16:44)
== END 2023-11-13 16:54 | disposition home or self-care (01) ==
LOC: ED 12:36
PROVIDERS: Nurse Practitioner
DX: K52.9 Noninfective gastroenteritis and colitis, unspecified (principal); Z20.822 Contact with and (suspected) exposure to COVID-19; R11.2 Nausea with vomiting, unspecified; Z88.2 Allergy status to sulfonamides; Z88.1 Allergy status to other antibiotic agents; Z79.899 Other long term (current) drug therapy; Z90.49 Acquired absence of other specified parts of digestive tract; Z90.711 Acquired absence of uterus with remaining cervical stump; Z90.89 Acquired absence of other organs

== ENCOUNTER → 2023-11-23 | Outpatient (CLI) | payer BC ==
[~2023-11-23] MED LIST changes: +ONDANSETRON4 MG SL
[2023-11-23 11:19] LABS: ALKALINE PHOSPHATASE 122 U/L (46-116); BUN 12 mg/dl (9-23); CHLORIDE 106 mmol/L (98-107); CHOLESTEROL 197 mg/dL (<200); FREE T4 1.37 ng/dl (0.89-1.76); LDL CHOLESTEROL 128 mg/dL (9-159); POTASSIUM 3.9 mmol/L (3.4-5.1); SGPT/ALT 21 U/L (5-49); TRIGLYCERIDES 120 mg/dl (<150)
== END | disposition home or self-care (01) ==
LOC: LAB 10:28
PROVIDERS: ATTEND Internal Medicine
DX: E66.01 Morbid (severe) obesity due to excess calories (principal); E55.9 Vitamin D deficiency, unspecified; R73.9 Hyperglycemia, unspecified; E34.9 Endocrine disorder, unspecified

== ENCOUNTER 2023-12-09 13:05 | Emergency (ER) | payer BC ==
[~2023-12-09] VITALS: Wt 163.3 kg
[2023-12-09] MEDS ORDERED: diphenhydrAMINE hydrochloride 25 MG CAP PO ONE (14:20)
[2023-12-09] MEDS ORDERED: methylPREDNISolone acetate 40 MG/ML VIAL IM ONE (14:20)
== END 2023-12-09 15:25 | disposition home or self-care (01) ==
LOC: ED 13:05
DX: L50.9 Urticaria, unspecified (principal); T50.996A Underdosing of other drugs, medicaments and biological substances, initial encounter; F32.A Depression, unspecified; M79.7 Fibromyalgia; Z88.2 Allergy status to sulfonamides; Z91.018 Allergy to other foods; Z90.49 Acquired absence of other specified parts of digestive tract; Z90.710 Acquired absence of both cervix and uterus; Z90.89 Acquired absence of other organs; Z98.890 Other specified postprocedural states; Z86.718 Personal history of other venous thrombosis and embolism; Y92.89 Other specified places as the place of occurrence of the external cause

== ENCOUNTER → 2023-12-16 | Outpatient (CLI) | payer BC | END | disposition home or self-care (01) | LOC: RESCLI 11:16 | PROVIDERS: ATTEND Internal Medicine | DX: I10 Essential (primary) hypertension (principal); I47.10 Supraventricular tachycardia, unspecified; E03.9 Hypothyroidism, unspecified; E66.9 Obesity, unspecified; K21.9 Gastro-esophageal reflux disease without esophagitis; E78.5 Hyperlipidemia, unspecified; E66.01 Morbid (severe) obesity due to excess calories; F41.9 Anxiety disorder, unspecified; J30.2 Other seasonal allergic rhinitis; E55.9 Vitamin D deficiency, unspecified; M79.7 Fibromyalgia; K63.89 Other specified diseases of intestine; E06.3 Autoimmune thyroiditis; R32 Unspecified urinary incontinence; Z82.49 Family history of ischemic heart disease and other diseases of the circulatory system; Z79.899 Other long term (current) drug therapy; Z88.8 Allergy status to other drugs, medicaments and biological substances; Z86.16 Personal history of COVID-19 ==

== ENCOUNTER → 2024-01-05 | Outpatient (CLI) | payer BC | END | disposition home or self-care (01) | LOC: RESCLI 01:06 | PROVIDERS: ATTEND Student in an Organized Health Care Education/Training Program | DX: J32.9 Chronic sinusitis, unspecified (principal); J30.2 Other seasonal allergic rhinitis; M79.89 Other specified soft tissue disorders; I12.9 Hypertensive chronic kidney disease with stage 1 through stage 4 chronic kidney disease, or unspecified chronic kidney disease; N18.30 Chronic kidney disease, stage 3 unspecified; E03.9 Hypothyroidism, unspecified; K21.9 Gastro-esophageal reflux disease without esophagitis; E78.5 Hyperlipidemia, unspecified; Z79.899 Other long term (current) drug therapy ==

== ENCOUNTER → 2024-03-31 | Outpatient (CLI) | payer BC ==
[2024-03-31 10:54] LABS: ALKALINE PHOSPHATASE 117 U/L (46-116); BUN 16 mg/dl (9-23); CHLORIDE 107 mmol/L (98-107); CHOLESTEROL 212 mg/dL (<200); FREE T4 1.42 ng/dl (0.89-1.76); LDL CHOLESTEROL 141 mg/dL (9-159); POTASSIUM 4.1 mmol/L (3.4-5.1); SGPT/ALT 14 U/L (5-49); TRIGLYCERIDES 136 mg/dl (<150)
== END | disposition home or self-care (01) ==
LOC: LAB 09:59
PROVIDERS: Internal Medicine; ATTEND Specialist
DX: E55.9 Vitamin D deficiency, unspecified (principal); R73.9 Hyperglycemia, unspecified; E89.0 Postprocedural hypothyroidism; E66.01 Morbid (severe) obesity due to excess calories; M79.7 Fibromyalgia

== ENCOUNTER → 2024-04-04 | Outpatient (CLI) | payer BC | END | disposition home or self-care (01) | LOC: RESCLI 01:40 | PROVIDERS: ATTEND Student in an Organized Health Care Education/Training Program | DX: I12.9 Hypertensive chronic kidney disease with stage 1 through stage 4 chronic kidney disease, or unspecified chronic kidney disease (principal); N18.30 Chronic kidney disease, stage 3 unspecified; M79.7 Fibromyalgia; N32.81 Overactive bladder; E06.3 Autoimmune thyroiditis; N39.41 Urge incontinence; F32.9 Major depressive disorder, single episode, unspecified; K21.9 Gastro-esophageal reflux disease without esophagitis; E66.01 Morbid (severe) obesity due to excess calories; F41.9 Anxiety disorder, unspecified; E55.9 Vitamin D deficiency, unspecified; K63.89 Other specified diseases of intestine; R21 Rash and other nonspecific skin eruption; E03.9 Hypothyroidism, unspecified; E78.5 Hyperlipidemia, unspecified; J30.2 Other seasonal allergic rhinitis; Z82.49 Family history of ischemic heart disease and other diseases of the circulatory system; Z88.8 Allergy status to other drugs, medicaments and biological substances; Z79.899 Other long term (current) drug therapy; Z98.890 Other specified postprocedural states; Z78.0 Asymptomatic menopausal state ==

== ENCOUNTER → 2024-04-06 | Outpatient (CLI) | payer BC ==
[2024-04-06 16:17] LABS: BUN 15 mg/dl (9-23)
== END | disposition home or self-care (01) ==
LOC: LAB 15:11
PROVIDERS: ATTEND Specialist
DX: R94.4 Abnormal results of kidney function studies (principal)

== ENCOUNTER 2024-04-20 14:29 | Emergency (ER) | payer BC ==
[~2024-04-20] VITALS: Ht 182.8 cm; Wt 163.3 kg
[2024-04-20 15:07] LABS: BASO # 0.1 10*3/uL (0.0-0.1); BASO % 0.7 % (0.0-1.0); EOS # 0.3 10*3/uL (0.0-0.4); EOS % 3.3 % (1.0-4.0); HEMATOCRIT 44.6 % (37.0-47.0); LYMPH # 2.3 10*3/uL (1.3-4.4); LYMPH % 28.9 % (27.0-41.0); MEAN CELL VOLUME 88.3 fl (81.0-99.0); MEAN CORPUSCULAR HGB 29.1 pg (27.0-31.0); MEAN PLATELET VOLUME 9.4 fl (9.6-12.3); MONO # 0.6 10*3/uL (0.1-1.0); MONO % 7.6 % (3.0-9.0); NEUT # 4.8 10*3/uL (2.3-7.9); NEUT % 58.8 % (47.0-73.0); PLATELET COUNT AUTOMATED 204 10*3/uL (130-400); RED BLOOD COUNT 5.05 10*6/uL (4.10-5.10); RED CELL DISTRI WIDTH 13.1 % (0-14.5); WHITE BLOOD COUNT 8.1 10*3/uL (4.8-10.8)
[2024-04-20 15:18] LABS: ACT PARTIAL THROMBO TIME 26.5 SECONDS (20.0-32.1)
[2024-04-20 15:31] LABS: ALKALINE PHOSPHATASE 116 U/L (46-116); BUN 13 mg/dl (9-23); CHLORIDE 106 mmol/L (98-107); POTASSIUM 3.9 mmol/L (3.4-5.1); SGPT/ALT 15 U/L (5-49)
== END 2024-04-20 16:09 | disposition home or self-care (01) ==
LOC: ED 14:29
PROVIDERS: Emergency Medicine
DX: R42 Dizziness and giddiness (principal); T67.1XXA Heat syncope, initial encounter; I95.1 Orthostatic hypotension; F32.A Depression, unspecified; F41.9 Anxiety disorder, unspecified; J45.909 Unspecified asthma, uncomplicated; E03.9 Hypothyroidism, unspecified; I12.9 Hypertensive chronic kidney disease with stage 1 through stage 4 chronic kidney disease, or unspecified chronic kidney disease; N18.30 Chronic kidney disease, stage 3 unspecified; M79.7 Fibromyalgia; Z88.2 Allergy status to sulfonamides; Z91.018 Allergy to other foods; Z88.8 Allergy status to other drugs, medicaments and biological substances; Z90.49 Acquired absence of other specified parts of digestive tract; Z90.710 Acquired absence of both cervix and uterus; Z90.89 Acquired absence of other organs; Z98.890 Other specified postprocedural states; X58.XXXA Exposure to other specified factors, initial encounter; Y93.89 Activity, other specified; Y92.009 Unspecified place in unspecified non-institutional (private) residence as the place of occurrence of the external cause; Y99.8 Other external cause status

== ENCOUNTER 2024-09-19 14:13 | Emergency (ER) | payer BC ==
[~2024-09-19] VITALS: Ht 182.8 cm; Wt 161.0 kg
[2024-09-19 14:56] LABS: BASO # 0.1 10*3/uL (0.0-0.1); BASO % 0.8 % (0.0-1.0); EOS # 0.1 10*3/uL (0.0-0.4); EOS % 1.7 % (1.0-4.0); HEMATOCRIT 42.9 % (37.0-47.0); MEAN CELL VOLUME 88.5 fl (81.0-99.0); MEAN CORPUSCULAR HGB 29.1 pg (27.0-31.0); MEAN CORPUSCULAR HGB CONC 32.9 g/dl (33.0-37.0); MEAN PLATELET VOLUME 9.6 fl (9.6-12.3); MONO # 0.8 10*3/uL (0.1-1.0); MONO % 10.1 % (3.0-9.0); NEUT # 4.3 10*3/uL (2.3-7.9); NEUT % 58.1 % (47.0-73.0); PLATELET COUNT AUTOMATED 201 10*3/uL (130-400); RED BLOOD COUNT 4.85 10*6/uL (4.10-5.10); WHITE BLOOD COUNT 7.5 10*3/uL (4.8-10.8)
[2024-09-19 15:07] LABS: ACT PARTIAL THROMBO TIME 26.7 SECONDS (20.0-32.1)
[2024-09-19 15:16] LABS: ALKALINE PHOSPHATASE 100 U/L (46-116); BUN 11 mg/dl (9-23); CHLORIDE 106 mmol/L (98-107); POTASSIUM 3.8 mmol/L (3.4-5.1); SGPT/ALT 15 U/L (5-49); TOTAL PROTEIN 7.1 gm/dL (6.0-8.0)
[2024-09-19] MEDS ORDERED: MELOXICAM15 MG PO (17:57)
== END 2024-09-19 18:03 | disposition home or self-care (01) ==
LOC: ED 14:13
PROVIDERS: Internal Medicine
DX: R09.1 Pleurisy (principal); M79.7 Fibromyalgia; F32.A Depression, unspecified; Z86.718 Personal history of other venous thrombosis and embolism; Z88.2 Allergy status to sulfonamides; Z91.018 Allergy to other foods; Z88.1 Allergy status to other antibiotic agents; Z90.49 Acquired absence of other specified parts of digestive tract; Z90.710 Acquired absence of both cervix and uterus; Z90.89 Acquired absence of other organs; Z98.890 Other specified postprocedural states

== ENCOUNTER → 2024-09-29 | Outpatient (CLI) | payer BC ==
[~2024-09-29] MED LIST changes: +MELOXICAM15 MG PO
[2024-09-29 16:02] LABS: FREE T4 1.64 ng/dl (0.89-1.76)
== END | disposition home or self-care (01) ==
LOC: RESCLI 02:55
PROVIDERS: Student in an Organized Health Care Education/Training Program; ATTEND Family Medicine
DX: M79.7 Fibromyalgia (principal); E06.3 Autoimmune thyroiditis; E78.5 Hyperlipidemia, unspecified; I47.10 Supraventricular tachycardia, unspecified; E66.01 Morbid (severe) obesity due to excess calories; N39.41 Urge incontinence; Z68.42 Body mass index [BMI] 45.0-49.9, adult; Z88.8 Allergy status to other drugs, medicaments and biological substances; Z98.890 Other specified postprocedural states; Z90.49 Acquired absence of other specified parts of digestive tract; Z79.899 Other long term (current) drug therapy; Z88.2 Allergy status to sulfonamides

== ENCOUNTER → 2024-10-14 | Outpatient (CLI) | payer BC | END | disposition home or self-care (01) | LOC: RAD 11:43 | PROVIDERS: ATTEND Internal Medicine | DX: J20.9 Acute bronchitis, unspecified (principal); R06.02 Shortness of breath; R05.9 Cough, unspecified ==

== ENCOUNTER → 2024-11-28 | Outpatient (CLI) | payer BC | END | disposition home or self-care (01) | LOC: RESCLI 15:22 → LAB 15:22 | PROVIDERS: ATTEND Student in an Organized Health Care Education/Training Program | DX: J06.9 Acute upper respiratory infection, unspecified (principal); Z20.822 Contact with and (suspected) exposure to COVID-19 ==

== ENCOUNTER → 2025-03-13 | Outpatient (CLI) | payer BC ==
[2025-03-13 10:15] LABS: ALKALINE PHOSPHATASE 119 U/L (46-116); BUN 22 mg/dl (9-23); CHLORIDE 103 mmol/L (98-107); CHOLESTEROL 186 mg/dL (<200); FREE T4 1.63 ng/dl (0.89-1.76); LDL CHOLESTEROL 115 mg/dL (9-159); POTASSIUM 4.2 mmol/L (3.4-5.1); SGPT/ALT 15 U/L (5-49); TOTAL PROTEIN 6.8 gm/dL (6.0-8.0); TRIGLYCERIDES 128 mg/dl (<150)
== END | disposition home or self-care (01) ==
LOC: LAB 08:21
PROVIDERS: ATTEND Internal Medicine
DX: E55.9 Vitamin D deficiency, unspecified (principal); E89.0 Postprocedural hypothyroidism; R73.9 Hyperglycemia, unspecified; E66.01 Morbid (severe) obesity due to excess calories

== ENCOUNTER → 2025-06-30 | Outpatient (CLI) | payer BC ==
[~2025-06-30] MED LIST changes: +IOHEXOL 300 MG/ML 100 ML VIAL IV ONE
== END | disposition home or self-care (01) ==
LOC: CT 14:48
PROVIDERS: ATTEND Internal Medicine
DX: R10.31 Right lower quadrant pain (principal); M19.90 Unspecified osteoarthritis, unspecified site

== ENCOUNTER → 2025-07-03 | Outpatient (CLI) | payer BC ==
[~2025-07-03] MED LIST changes: -IOHEXOL 300 MG/ML 100 ML VIAL IV ONE
[2025-07-03 12:13] LABS: BASO # 0.1 10*3/uL (0.0-0.1); BASO % 0.7 % (0.0-1.0); BILIRUBIN Negative (Negative); BLOOD Negative (Negative); CLARITY Cloudy (Clear); COLOR Yellow (Yellow); EOS # 0.2 10*3/uL (0.0-0.4); EOS % 2.3 % (1.0-4.0); KETONE Trace (Negative); LEUKO ESTERASE Negative (Negative); MEAN CELL VOLUME 87.0 fl (81.0-99.0); MEAN CORPUSCULAR HGB 28.3 pg (27.0-31.0); MEAN PLATELET VOLUME 9.9 fl (9.6-12.3); MONO # 0.5 10*3/uL (0.1-1.0); MONO % 7.1 % (3.0-9.0); NEUT # 4.2 10*3/uL (2.3-7.9); NEUT % 59.4 % (47.0-73.0); NITRITE Negative (Negative); NUCLEATED RED BLOOD CELL 0.0 % (0.0-0.0); NUCLEATED RED BLOOD CELL 0.0 10*3/uL (0.0-0.0); PH 5.5 (4.5-8.0); PLATELET COUNT AUTOMATED 205 10*3/uL (130-400); RED CELL DISTRI WIDTH 13.1 % (0-14.5); SPECIFIC GRAVITY 1.020 (1.001-1.030); UROBILINOGEN 0.2 E.U./dl (0.0-1.0)
[2025-07-03 12:34] LABS: BUN 16 mg/dl (9-23); SGPT/ALT 14 U/L (5-49)
[2025-07-03 13:53] LABS: BACTERIA 1+; EPITHELIAL CELLS 21-30; MUCOUS 1+; RBC 0-2 rbc/hpf (0-2); WBC 0-2 wbc/hpf (0-5)
== END | disposition home or self-care (01) ==
LOC: LAB 11:26
PROVIDERS: ATTEND Student in an Organized Health Care Education/Training Program
DX: R10.31 Right lower quadrant pain (principal)

== ENCOUNTER → 2025-07-13 | Outpatient (CLI) | payer BC | END | disposition home or self-care (01) | LOC: US 02:22 | PROVIDERS: ATTEND Student in an Organized Health Care Education/Training Program | DX: R10.20 Pelvic and perineal pain unspecified side (principal); Z90.710 Acquired absence of both cervix and uterus ==

== ENCOUNTER → 2025-07-31 | Outpatient (CLI) | payer BC ==
[2025-07-31 10:24] LABS: BUN 16 mg/dl (9-23); FREE T4 1.39 ng/dl (0.89-1.76)
== END | disposition home or self-care (01) ==
LOC: LAB 09:28
PROVIDERS: ATTEND Internal Medicine
DX: E89.0 Postprocedural hypothyroidism (principal); E55.9 Vitamin D deficiency, unspecified; R73.9 Hyperglycemia, unspecified

== ENCOUNTER → 2025-08-19 | Outpatient (CLI) | payer BC ==
[2025-08-19 08:42] LABS: BUN 18 mg/dl (9-23); SGPT/ALT 14 U/L (5-49)
== END | disposition home or self-care (01) ==
LOC: LAB 07:20
PROVIDERS: ATTEND Specialist
DX: R94.4 Abnormal results of kidney function studies (principal); M79.7 Fibromyalgia

== ENCOUNTER 2025-09-15 12:07 | Emergency (ER) | payer BC ==
[~2025-09-15] VITALS: Ht 182.8 cm; Wt 165.6 kg
[2025-09-15] MEDS ORDERED: Metoclopramide Hydrochloride 10 MG/2 ML VIAL IV ONE (12:35)
[2025-09-15] MEDS ORDERED: SODIUM CHLORIDE 0.9% 1,000 ML IV ONE (12:35)
[2025-09-15] MEDS ORDERED: diphenhydrAMINE hydrochloride 50 MG/ML VIAL IV ONE (12:35)
[2025-09-15] MEDS ORDERED: NAPROXEN250 MG PO (14:36)
== END 2025-09-15 14:58 | disposition home or self-care (01) ==
LOC: ED 12:07
DX: S76.911A Strain of unspecified muscles, fascia and tendons at thigh level, right thigh, initial encounter (principal); F32.A Depression, unspecified; M79.7 Fibromyalgia; Z86.718 Personal history of other venous thrombosis and embolism; Z88.2 Allergy status to sulfonamides; Z88.8 Allergy status to other drugs, medicaments and biological substances; Z90.49 Acquired absence of other specified parts of digestive tract; Z90.710 Acquired absence of both cervix and uterus; Z90.89 Acquired absence of other organs; X50.1XXA Overexertion from prolonged static or awkward postures, initial encounter; Y93.89 Activity, other specified; Y92.89 Other specified places as the place of occurrence of the external cause; Y99.8 Other external cause status

== ENCOUNTER → 2025-10-07 | Outpatient (CLI) | payer BC ==
[~2025-10-07] MED LIST changes: +NAPROXEN250 MG PO
[2025-10-07 10:24] LABS: BUN 10 mg/dl (9-23)
== END | disposition home or self-care (01) ==
LOC: LAB 08:51
PROVIDERS: ATTEND Specialist
DX: R94.4 Abnormal results of kidney function studies (principal)

== ENCOUNTER → 2025-10-09 | Outpatient (CLI) | payer BC | END | disposition home or self-care (01) | LOC: RESCLI 12:41 → LAB 12:41 | PROVIDERS: ATTEND Internal Medicine | DX: J06.9 Acute upper respiratory infection, unspecified (principal) ==